=== PATIENT | female | born 1960 | race Caucasian/White ===

== ENCOUNTER 2017-10-07 15:08 | Day surgery (SDC) | payer BC, OTHER ==
[~2017-10-07 15:08] MED LIST: DIPRIVAN VIAL ONE; LTA KIT LIDOCAINE 4% ONE; NEO-SYNEPHRINE INJ ONE; NEOSTIGMINE INJ ONE; NORCURON INJ 10 MG VIAL ONE; QUELICIN (OR ANECTINE) ONE; ROBINUL ONE; SUPRANE IN ONE; VERSED ONE; XYLOCAINE 2 % (PLAIN) ONE; ZOFRAN INJ 4 MG VIAL ONE
[2017-10-07 15:14] VITALS: BMI 31.1
[2017-10-07] MEDS ORDERED: LR 1000 ML IV 1,000 ML IV ONE ×2 (16:13→18:25)
[2017-10-07] MEDS ORDERED: ANCEF 1 GM IV PREMIX* 1 GM/50 ML BAG IV ONE ×2 (16:13→16:30)
--- NOTE | 2017-10-07 16:22 | DR.GENAD ---
HPI - PCP Primary Care Physician: JARRED - Complaint/Symptoms Chief Complaint Doctors Comments: Patient states she has been having RUQ pain for the past three days and went to the emergency room in [place] and they did a CT of the abdomen and told her it was her gallbladder and they sent her to the emergency room here for Dr. Cobian. Patient states that her last meal was 12 noon but it all came back up. States she cannot keep anything down today. She denies chest pain or SOB. She denies fever or chills. She denies dysuria or hematuria. Chief Complaint:: "MY GALLBLADDER IS BAD." Self Treatment fo Chief Complaint: NONE - Nurses notes reviewed Nurses Notes Review: Yes - Source History Provided: Patient - Mode of Arrival Mode of Arrival: Ambulatory - Timing Onset of Chief Complaint: 10/05/17 Came on: Gradually - Duration Duration: Constant How lon Duration: Days - Location Location: RUQ pain - Severity Severity: Moderate - Modifying Factors Worsens:: nothing Improves:: nothing PMH - PMH Past Medical History: No Past Medical History: Diabetes, Hypertension Past Surgical History: Yes Surgical History: , Hysterectomy - Family History History of Family Medical Conditions: Yes Family Medical History: Heart Failure, Hypertension - Social History Does patient currently use any type of tobacco product: No Have you used tobacco products in the last 12 months: No Type of Tobacco Use: None Does any household member use tobacco: No Alcohol Use: None Do you use any recreational Drugs:: No Lives With: Family Lives Where: Home - infectious screening In the last 2 months have you had wt loss of >10#?: NO Have you had fever, night sweats or hemotysis?: No Have you traveled outside the country in the last 6 months?: No Isolation: Standard ROS - Review of Systems Constitutional: No Symptoms Reported, Loss of Appetite Eyes: No Symptoms Reported ENTM: No Symptoms Reported Respiratoy: No Symptoms Reported Cardiovascular: No Symptoms Reported Gastrointestinal/Abdominal: No Symptoms Reported, Abdominal Pain, Nausea, Vomiting Genitourinary: No Symptoms Reported. negative: See HPI, Discharge, Dysuria, Frequency, Hematuria, Pain, Bleeding, Other Neurological: No Symptoms Reported Musculoskeletal: No Symptoms Reported Integumentary: No Symptoms Reported Hematologic/Lymphatic: No Symptoms Reported Endocrine: No Symptoms Reported Psychiatric: No Symptoms Reported. negative: See HPI, Anxiety, Depression, Hallucinations, Excessive crying, Suicidal, Other PE - Vital Signs Vitals: Temperature 96.7 F Pulse Rate 100 Respiratory Rate 20 Blood Pressure [Right Arm] 126/60 Blood Pressure [Left Arm] 123/63 Blood Pressure 155/109 O2 Sat by Pulse Oximetry 99 - General Limitations: No Limitations General Appearance: Alert, In Distress (moderate) - Head Head Exam: Normal Inspection, Atraumatic, Normocephalic - Eyes Eye exam: Normal Appearance, PERRL, EOMI. negative: Scleral Icterus, Conjunctival Injection, Nystagmus, Miosis, Mydrasis, Periorbital Swelling, Periorbital Tenderness, Other - ENT ENT Exam: Normal Exam, Normal Oropharynx, Normal External Ear Exam, Mucous Membranes Moist, TM's Normal Bilaterally External Ear Exam: Normal External Inspection TM/Canal Exam: Bilateral Normal Nose Exam: Normal Nose Exam Mouth Exam: Normal Inspection Throat Exam: Normal Inspection. negative: Tonsillar Erythema, Tonsillomegaly, Tonsillar Exudate, R Peritonsillar Mass, L Peritonsillar Mass, Muffled Voice, Other - Neck Neck Exam: Normal Inspection, Full ROM, Trachea Midline. negative: Tenderness, Meningismus, Lymphadenopathy, Thyromegaly, Other - Chest Chest Inspection: Normal Inspection, Symmetric Chest Wall Rise - Respiratory Respiratory Exam: Normal Lung Sounds Bilat Respiratory Exam: Bilateral Clear to Auscultation - Cardiovascular Cardiovascular Exam: Regular Rate, Normal Rhythm, Normal Heart Sounds - Abdominal Exam Abdominal Exam: Normal Inspection, Normal Bowel Sounds, Soft, Tenderness (RUG tenderness with guarding), Guarding Abdominal Tenderness: RUQ, Moderate - Extremities Extremities Exam: Normal Inspection, Full ROM, Normal Capillary Refill. negative: Tenderness, Edema, Joint Swelling, Calf Tenderness, Other - Back Back Exam: Normal Inspection, Full ROM, (R) CVA Tenderness - Neurologic Neurological Exam: Alert, Oriented X3, CN II-XII Intact, Normal Gait, Reflexes Normal - Psychiatric Psychiatric Exam: Normal Affect, Normal Mood - Skin Skin Exam: Warm, Dry, Intact, Normal Color ROR - XRAY XRAY Interpreted by: Radiologist (CXR: No acute cardiopulmonary disease) - EKG Rate: 94 [place]: Normal Rhythm: NSR Block: None Hypertrophy: None ST: Nonsp - Diagnosis Discharge Problem: Abdominal pain, biliary disease, Diabetes mellitus, Essential hypertension - Discharge Plan Disposition: XFER OTHER Condition: Stable - Follow ups/Referrals - Instructions
[2017-10-07] MEDS: FENTANYL INJ 250 mcg ONE ×2 (16:33→17:21)
[2017-10-07] MEDS: DECADRON INJ ONE ×2 (16:34→17:21)
--- NOTE | 2017-10-07 16:44 | RAD ---
HISTORY: Preop. Study: Portable chest. Comparison: None. Findings: The trachea is midline. The cardiac silhouette is unremarkable. No obvious focal consolidation, ple ural effusion, or pneumothorax. The bony thorax is unremarkable. IMPRESSION: No acute cardiopulmonary disease. Reported By:
[2017-10-07] MEDS ORDERED: MARCAINE 0.25% INJ ONE (17:24)
[2017-10-07] MEDS ORDERED: XYLOCAINE 1% and EPINEPHRINE 1:100,000 ONE (17:24)
[2017-10-07] MEDS ORDERED: NS IRRIGATION 1000 ML 1,000 ML IR ONE ×4 (17:45→18:47)
[2017-10-07] MEDS ORDERED: FENTANYL INJ 100 mcg ONE (17:51)
[2017-10-07] MEDS ORDERED: PHENERGAN INJ 25 MG IVP PRN (19:31)
[2017-10-07] MEDS ORDERED: ZOFRAN INJ 4 MG VIAL IVP PRN (19:31)
[2017-10-07] MEDS ORDERED: BENADRYL INJ 50 MG VIAL IVP PRN (19:31)
[2017-10-07] MEDS ORDERED: REGLAN INJ 10 MG VIAL IVP PRN (19:31)
[2017-10-07] MEDS ORDERED: ULTRAM PO PRN (19:39)
--- NOTE | 2017-10-07 19:50 | OR.GENERIC ---
Post-Op Note Generic - Post-Op Note Operative Report: Operative Report Date of Operation: October 07, 2017 Pre-Operative Diagnosis: Acute cholecystitis. Post-Operative Diagnosis: 1. Acute cholecystitis. 2. Hepatosis. 3. Intra-abdominal adhesions. Procedures: 1. Laparoscopic cholecystectomy. 2. Laparoscopic lysis of adhesions. Surgeon: Charly Cobian MD. Excel Expert: Leandro Herman CRNA. Specimen: Gallbladder. Estimated blood loss: 100 mL. Complications: None. Summary: The patient is a 57 year old female who presented with acute cholecystitis. The patient was offered cholecystectomy. The risk and benefits of the procedure including difficulty with anesthesia, bleeding, infection, conversion to open procedure, bile leak, hernia formation, DVT, as well as PE were discussed with the patient. The patient understood these risks and requested the procedure. On October 07, 2017, the patient was brought to the operative theatre. A time out was performed verifying the patient and procedure. The patient received Ancef for pre-operative antibiosis. After satisfactory induction of general endotracheal anesthesia, the abdomen was prepped with Chloraprep and draped in the usual sterile fashion. The skin and subcutaneous tissue inferior to the umbilicus was anesthetized using local anesthetic. The skin was incised sharply. A 12 mm trocar was placed though the incision and into the peritoneal cavity using the Joana technique. Carbon dioxide was infiltrated through this trocar to obtain a pneumoperitoneum of 15 mm Hg. A camera was placed through this trocar and swept in all directions. No injury was seen from entering the peritoneal cavity. However, omental adhesions were noted in the right and middle aspects of the abdomen. The camera was navigated to the left and superiorly to allow visualization of the right upper quadrant. A site was selected to the right of the subxiphoid location for our 2nd trocar. The skin and fascia was anesthetized using local anesthetic. The skin was incised sharply. A 5 mm trocar was placed into the peritoneal cavity under direct visualization. In a similar manner, two additional 5 mm trocars were placed. The first was placed in the mid-clavicular line approximately 2 fingerbreadths inferior to the left costal margin and a second in the anterior axillary line approximately 2 fingerbreadths inferior to the left costal margin. At this point, the camera was changed to a 5 mm and placed in a right upper quadrant trocar. Blunt dissection was used to free the omental adhesions in the periumbilical and right lower quadrant regions. The 10 mm camera was again used. The patient was placed in reverse Trendelenburg and rotated to the patients left. The liver was noted to be nodular. The gallbladder was grasped at the fundus and elevated cephalad and slightly lateral. Omental attachments were taken down using blunt dissection and electrocautery. The peritoneum on the medial and lateral aspects of the infundibulum of the gallbladder was scored using hook electrocautery. Edema fluid was noted. Bleeding of the gallbladder fossa on the lateral aspect of the gallbladder was controlled using hook electrocautery. Using blunt dissection, the cystic artery and duct were isolated. The critical view of safety was obtained. Both of these structures were divided between endoclips. The gallbladder was dissected free using hook electrocautery. The gallbladder was placed in an endobag and removed through the umbilical trocar site without difficulty. The trocar and camera were placed back inside the abdomen. Our clips were noted in good position. Bleeding of the gallbladder fossa was controlled using electrocautery. At this point, the 5 mm trocars were removed under direct visualization. No bleeding was seen. The umbilical trocar was then removed and pneumoperitoneum released. The fascia at the umbilicus was closed using a 0 -Vicryl placed in a [id number] configuration x 2. The skin edges at all incisions were re-approximated using inverted, interrupted 4-0 Monocryl sutures. Mastisol and Steri-strips were placed. Sterile dressings were placed. The patient was awakened and taken to the recovery room in stable condition. There were no complications. All counts were correct.
[2017-10-07] MEDS: DILAUDID INJ IVP PRN ×3 (19:51→20:20)
[2017-10-07] MEDS ORDERED: DILAUDID INJ ONE (19:53)
[2017-10-07] MEDS ORDERED: PHENERGAN INJ 25 MG ONE (20:05)
[2017-10-08 05:53] VITALS: BP 112/69
== END 2017-10-08 10:30 | disposition home or self-care (01) ==
LOC: ER 15:17 → SURG1 17:11
PROVIDERS: ATTEND Student in an Organized Health Care Education/Training Program
PROC: 0FT44ZZ Resection of Gallbladder, Percutaneous Endoscopic Approach (ICD-10-PCS; principal; 2017-10-07 16:30)
DX: K66.0 Peritoneal adhesions (postprocedural) (postinfection) (principal); Z01.810 Encounter for preprocedural cardiovascular examination; K81.2 Acute cholecystitis with chronic cholecystitis
CPT/HCPCS: 71045; 93005; 93010; 96365; 99284; A4216; A4222; S0020; J0330; J0690; J1100; J1170; J2001; J2250; J2370; J2405; J2550; J2710; J3010; J3490; J7120

== ENCOUNTER → 2017-10-26 | Outpatient (CLI) | payer BC ==
[2017-10-08 05:53] VITALS: BP 112/69
[2017-10-26 16:26] LABS: BASOPHILS # (AUTO) 0.1 X10^3/uL (0.0-0.1); BASOPHILS % (AUTO) 0.9 % (0.2-1.0); EOSINOPHILS # (AUTO) 0.3 x10^3/uL (0.0-0.2); EOSINOPHILS % (AUTO) 3.8 % (0.9-2.9); HEMATOCRIT 35.2 % (36.0-47.0); HEMOGLOBIN 12.4 g/dL (12.0-16.0); LYMPHOCYTES # (AUTO) 2.6 X10^3/uL (1.3-2.9); LYMPHOCYTES % (AUTO) 36.6 % (21.0-51.0); MEAN CORPUSCULAR HEMOGLOBIN 26.8 pg (27.0-34.0); MEAN CORPUSCULAR HGB CONC 35.1 g/dL (33.0-35.0); MEAN CORPUSCULAR VOLUME 76.2 fL (80.0-100.0); MEAN PLATELET VOLUME 8.6 fL (7.4-11.0); MONOCYTES # (AUTO) 0.6 x10^3/uL (0.3-0.8); MONOCYTES % (AUTO) 8.1 % (0.0-13.0); NEUTROPHILS # (AUTO) 3.7 x10^3/uL (2.2-4.8); NEUTROPHILS % (AUTO) 50.6 % (42.0-75.0); PLATELET COUNT 232 X10^3/uL (150.0-450.0); RED BLOOD COUNT 4.62 X10^6/uL (3.5-5.4); RED CELL DISTRIBUTION WIDTH 13.1 % (11.6-16.5); WHITE BLOOD COUNT 7.2 X10^3/uL (3.6-10.0)
[2017-10-26 16:31] LABS: BILIRUBIN,DIRECT 0.2 mg/dL (0-0.2)
[2017-10-31 21:22] LABS: HEPATITIS A ANTIBODY IGM Negative (Negative)
[2017-11-01 06:35] LABS: HEPATITIS B CORE IGM Negative (Negative); HEPATITIS B SURFACE ANTIGEN Negative (Negative)
[2017-11-01 06:36] LABS: ANTI-NUCLEAR ANTIBODY TEST None Detected (None Detected)
== END ==
LOC: LAB 15:20
PROVIDERS: ATTEND Internal Medicine Gastroenterology
DX: K76.89 Other specified diseases of liver (principal)
CPT/HCPCS: 36415; 80074; 80076; 82103; 82390; 82525; 82728; 83550; 85025; 85610; 86256; 86308

== ENCOUNTER 2020-06-08 21:12 | Inpatient (IN) ==
--- NOTE | 2020-06-08 21:27 | DR.SOBA ---
HPI Time Seen Time Seen by Provider: 06/08/20 21:22 Complaints Chief Complaint Doctors Comments: DYspnea onset 3 days ago. Positive covid 19. Oxygen sats 70% at home. Here 89% 4L NC COVID-19 Coronavirus risk:travel/contact w/high risk person: Yes Has patient experienced Coronavirus symptoms: Yes Coronavirus symptoms experienced: Coughing and Shortness of Breath PMH PMH Past Medical History: Diabetes and Hypertension Past Surgical History: Yes Surgical History: and Hysterectomy Family History Family Medical History: Heart Failure and Hypertension Social History Do you use any recreational Drugs:: No Travel Risk Coronavirus risk:travel/contact w/high risk person: Yes Has patient experienced Coronavirus symptoms: Yes Coronavirus symptoms experienced: Coughing and Shortness of Breath ROS Review of Systems Constitutional: Fever and Weakness Eyes: No Symptoms Reported ENTM: No Symptoms Reported Respiratoy: Non-Productive Cough and Short of Breath Cardiovascular: Chest Pain Gastrointestinal/Abdominal: No Symptoms Reported Genitourinary: No Symptoms Reported Neurological: No Symptoms Reported Musculoskeletal: No Symptoms Reported Integumentary: No Symptoms Reported Hematologic/Lymphatic: No Symptoms Reported Endocrine: No Symptoms Reported Psychiatric: No Symptoms Reported All Other Systems: Reviewed and Negative PE Vital Signs Vitals: Temperature 99.9 F Pulse Rate 85 Respiratory Rate 39 Blood Pressure [Right Arm] 112/69 Blood Pressure [Left Arm] 123/63 Blood Pressure 154/68 O2 Sat by Pulse Oximetry 90 COURSE Consultation Called: 22:49 Call Returned: 22:49 Consultation Comments: 2250: case discussed with Dr. Willy bianchi and start Covid 19 protocol ROR Labs Reviewed Result Diagrams: 06/08/20 21:26 06/08/20 21:26 Laboratory: WBC 2.8 X10^3/uL (3.6-10.0) L 06/08/20 21:26 RBC 4.95 X10^6/uL (3.5-5.4) 06/08/20 21:26 Hgb 13.8 g/dL (12.0-16.0) 06/08/20 21:26 Hct 40.1 % (36.0-47.0) 06/08/20 21:26 MCV 81.1 fL (80.0-100.0) 06/08/20 21:26 MCH 27.9 pg (27.0-34.0) 06/08/20 21:26 MCHC 34.4 g/dL (33.0-35.0) 06/08/20 21: RDW 14.6 % (11.6-16.5) 06/08/20 21: Plt Count 72 X10^3/uL (150.0-450.0) L 06/08/20 21: MPV 9.0 fL (7.4-11.0) 06/08/20 21: Neut % (Auto) 75.3 % (42.0-75.0) H 06/08/20 21: Lymph % (Auto) 14.9 % (21.0-51.0) L 06/08/20 21: [place] % (Auto) 9.1 % (0.0-13.0) 06/08/20 21: Eos % (Auto) 0.1 % (0.9-2.9) L 06/08/20 21: Baso % (Auto) 0.6 % (0.2-1.0) 06/08/20 21: Neut # (Auto) 2.1 x10^3/uL (2.2-4.8) L 06/08/20 21: Lymph # (Auto) 0.4 X10^3/uL (1.3-2.9) L 06/08/20 21: [place] # (Auto) 0.2 x10^3/uL (0.3-0.8) L 06/08/20 21: Eos # (Auto) 0.0 x10^3/uL (0.0-0.2) 06/08/20 21: Baso # (Auto) 0.0 X10^3/uL (0.0-0.1) 06/08/20 21: Absolute Nucleated RBC 0.0 /100WBC 06/08/20 21: D-Dimer 0.64 ug/ml (0.0-0.57) H* 06/08/20 21:26 Sample Site left radial 06/08/20 21:35 ABG pH 7.490 (7.35-7.45) H 06/08/20 21:35 ABG pCO2 24.0 mmHg (35.0-45.0) L 06/08/20 21:35 ABG pO2 51.0 mmHg (80.0-100.0) L 06/08/20 21:35 ABG HCO3 18.3 mmol/L (22-26) L 06/08/20 21:35 ABG O2 Saturation 89.0 % (90-100) L 06/08/20 21:35 ABG Base Excess -3.5 mmol/L (-2.0-2.0) L 06/08/20 21:35 Tashi Test pos 06/08/20 21:35 A-a Gradient 119.0 mmHg 06/08/20 21:35 FiO2 28.0 06/08/20 21:35 Blood Gas Comments Esteban well 06/08/20 21:35 Sodium 130 mmol/L (136-145) L 06/08/20 21:26 Corrected Sodium 132 mmol/L (136-145) L 06/08/20 21:26 Potassium 3.5 mmol/L (3.5-5.1) 06/08/20 21:26 Chloride 94 mmol/L (98-107) L 06/08/20 21:26 Carbon Dioxide 23.0 mmol/L (21-32) 06/08/20 21:26 BUN 17 mg/dL (7-18) 06/08/20 21:26 Creatinine 1.20 mg/dL (0.55-1.02) H 06/08/20 21:26 Est GFR (MDRD) Af Amer 59 (>60) 06/08/20 21:26 Est GFR (MDRD) Non-Af 48 (>60) L 06/08/20 21:26 Glucose 200 mg/dL (65-99) H 06/08/20 21:26 Calcium 9.0 mg/dL (8.5-10.1) 06/08/20 21:26 Corrected Calcium 9.7 mg/dL (8.5-10.1) 06/08/20 21:26 Ferritin 3237 ng/mL (8-252) H 06/08/20 21:26 Total Bilirubin 1.20 mg/dL (0.2-1.0) H 06/08/20 21:26 AST 254 Units/L (15-37) H 06/08/20 21:26 ALT 139 Units/L (12-78) H 06/08/20 21:26 Alkaline Phosphatase 105 Units/L (46-116) 06/08/20 21:26 Creatine Kinase 123 Units/L (26-192) 06/08/20 21:26 CK-MB (CK-2) < 1.0 ng/mL (0-4.0) 06/08/20 21:26 CK/CKMB % Calc 0.8 % (<4) 06/08/20 21:26 Troponin I < 0.02 ng/mL (0-1.5) 06/08/20 21:26 C-Reactive Protein 127.10 mg/L (0-3.0) H 06/08/20 21:26 B-Natriuretic Peptide < 5.0 pg/mL (0-79) 06/08/20 21: Total Protein 7.6 g/dL (6.4-8.2) 06/08/20 21: Albumin 3.1 g/dL (3.4-5.0) L 06/08/20 21: Globulin 4.5 g/dL (2.5-4.5) 06/08/20 21: Albumin/Globulin Ratio 0.7 Ratio (1.1-2.1) L 06/08/20 21:26 XRAY XRAY Interpreted by: Radiologist X-ray Results: chest: Name: UVALDO WHITTEN [facility]#: [id number] : 1960 Sex: F Location: Order Number(s): [id number] Procedure(s):CHEST, 1 VIEW Ordering Physician: CAMILA LEVY Primary Care: Jay Perez Service Date: 06/08/20 Service Time: 2126 EXAM: CHEST X-RAY HISTORY: Shortness of breath. TECHNIQUE: AP chest x-ray dated 06/08/2020 at 9:30 PM. COMPARISON: None available. FINDINGS: There is prominence of the bronchopulmonary markings, especially in the middle and lower lung [place], in keeping with bronchitis and interstitial pneumonia (e.g. Covid pneumonia) in the appropriate clinical setting; DDX includes mild to moderate noncardiogenic pulmonary congestion in the appropriate clinical setting. Clinical correlation is advised. There is aortic atherosclerosis. No focal lung consolidation/mass, pleural effusion, or pneumothorax is seen. The heart size and mediastinum are within normal limits. The visualized bony structures are within normal limits. IMPRESSION: 1. Prominence of the bronchopulmonary markings, especially in the middle and lower lung [place], in keeping with bronchitis and interstitial pneumonia (e.g. Covid pneumonia) in the appropriate clinical setting; DDX includes mild to moderate noncardiogenic pulmonary congestion in the appropriate clinical setting. 2. Recommend clinical correlation and appropriate follow-up evaluation (consider noncontrast chest CT) for confirmation and further characterization as clinically warranted. Opioid Opioid Risk Tool Age (Camila box if 16-45): No History of Preadolescent Sexual Abuse: No Total: 0 Total Score Risk Category: Low Risk Copyright: Miles AQUINO predicting aberrant behaviors Diagnosis Discharge Problem: Pneumonia due to 2019 novel coronavirus
[2020-06-08] MEDS ORDERED: XOPENEX 1.25 MG/3 ML NEBULE NEB ONE (21:28)
[2020-06-08] MEDS ORDERED: SOLU-Medrol 125 MG VIAL IVP ONE (21:29)
[2020-06-08] MEDS ORDERED: MOTRIN TAB 800 MG PO STA (21:29)
[2020-06-08 21:41] LABS: BASOPHILS % (AUTO) 0.6 % (0.2-1.0); EOSINOPHILS % (AUTO) 0.1 % (0.9-2.9); HEMATOCRIT 40.1 % (36.0-47.0); HEMOGLOBIN 13.8 g/dL (12.0-16.0); LYMPHOCYTES # (AUTO) 0.4 X10^3/uL (1.3-2.9); LYMPHOCYTES % (AUTO) 14.9 % (21.0-51.0); MEAN CORPUSCULAR HEMOGLOBIN 27.9 pg (27.0-34.0); MEAN CORPUSCULAR HGB CONC 34.4 g/dL (33.0-35.0); MEAN CORPUSCULAR VOLUME 81.1 fL (80.0-100.0); MONOCYTES # (AUTO) 0.2 x10^3/uL (0.3-0.8); MONOCYTES % (AUTO) 9.1 % (0.0-13.0); NEUTROPHILS # (AUTO) 2.1 x10^3/uL (2.2-4.8); NEUTROPHILS % (AUTO) 75.3 % (42.0-75.0); PLATELET COUNT 72 X10^3/uL (150.0-450.0); RED BLOOD COUNT 4.95 X10^6/uL (3.5-5.4); RED CELL DISTRIBUTION WIDTH 14.6 % (11.6-16.5); WHITE BLOOD COUNT 2.8 X10^3/uL (3.6-10.0)
[2020-06-08] MEDS ORDERED: SOLU-Medrol 125 MG VIAL ONE (21:43)
[2020-06-08] MEDS ORDERED: MOTRIN TAB 800 MG PO ONE (21:44)
[2020-06-08 21:48] LABS: ABG BASE EXCESS -3.5 mmol/L (-2.0-2.0); ABG HCO3 18.3 mmol/L (22-26)
[2020-06-08 21:49] LABS: ABG ALLEN TEST pos
--- NOTE | 2020-06-08 21:52 | RAD ---
EXAM: CHEST X-RAYHISTORY: Shortness of breath.TECHNIQUE: AP chest x-ray dated 06/08/2020 at 9:30 PM.COMPARISON: None available.FINDINGS:There is prominence of the bronchopulmonary markings, especially in the middle and lower lung [place], in keeping with bronchitis and interstitial pneumonia (e.g. Covid pneumonia) in the appropriate clinical setting; DDX includes mild to moderate noncardiogenic pulmonary congestion in the appropriate clinical setting. Clinical correlation is advised.There is aortic atherosclerosis. No focal lung consolidation/mass, pleural effusion, or pneumothorax is seen.The heart size and mediastinum are within normal limits. The visualized bony structures are within normal limits.IMPRESSION:1. Prominence of the bronchopulmonary markings, especially in the middle and lower lung [place], in keeping with bronchitis and interstitial pneumonia (e.g. Covid pneumonia) in the appropriate clinical setting; DDX includes mild to moderate noncardiogenic pulmonary congestion in the appropriate clinical setting.2. Recommend clinical correlation and appropriate follow-up evaluation (consider noncontrast chest CT) for confirmation and further characterization as clinically warranted.Electronically signed by: Arslan Smallwood (Jun 08, 2020 21:50:35)
[2020-06-08 22:03] LABS: ALANINE AMINOTRANSFERASE 139 Units/L (12-78); ALBUMIN 3.1 g/dL (3.4-5.0); ALKALINE PHOSPHATASE 105 Units/L (46-116); ASPARTATE AMINO TRANSFERASE 254 Units/L (15-37); BLOOD UREA NITROGEN 17 mg/dL (7-18); CHLORIDE 94 mmol/L (98-107); CKMB % 0.8 % (<4); COR CA(FOR HYPOALB) 9.7 mg/dL (8.5-10.1); COR NA(FOR HYPERGLY) 132 mmol/L (136-145); CREATINE KINASE 123 Units/L (26-192); CREATINE KINASE MB < 1.0 ng/mL (0-4.0); SODIUM 130 mmol/L (136-145); TOTAL PROTEIN 7.6 g/dL (6.4-8.2); TROPONIN I < 0.02 ng/mL (0-1.5); eGFR NON BLACK RACES 48 (>60)
--- NOTE | 2020-06-08 22:46 | CT ---
STUDY: CTA CHEST WITH IV CONTRASTCOMPARISON: NoneTECHNIQUE: axial images were acquired of the chest with IV contrast for a CT angiogram. Coronal and sagittal images were provided. All images were reviewed in a variety of windows and levels. 3D 8 mm thick MIPS images were provided.RADIATION REDUCTION TECHNIQUE: Automated exposure control, Adjustment of the mA and/or kV according to patient size, or iterative reconstruction techniques were used. 8 mm thick axial MIPS images were provided.HISTORY: PT IN ED VIA WHEELCHAIR WITH C/O SOB AND LOW O2 SAT. PT TESTED COVID POSITIVE TODAY AND SATS RUNNING IN THE 'S.FINDINGS:CHEST:THYROID GLANDS: The thyroid gland is unremarkable.HEART AND VESSELS: The heart size is within normal limits.There is no evidence of pericardial effusion. Thoracic aorta is normal size without evidence of an aneurysm or dissection.Main pulmonary artery size is within normal limits. There are no filling defect seen within the visualized pulmonary arteries to suggest a pulmonary embolism.LYMPH NODES: There is no evidence of axillary or mediastinal lymphadenopathy. No evidence of left hilar lymphadenopathy. There is right hilar lymphadenopathy seen measuring 16 mm in short axis which may be reactive in etiology.AIRWAY: The trachea and mainstem bronchi are patent.No intraluminal lesions are seen.LUNGS: Extensive diffuse ground-glass opacities are seen throughout the right left lung involving the subpleural surface and major fissures. Some of these areas demonstrate interlobular septal thickening compatible with crazy paving. No pleural effusion or pneumothorax is seen.ESOPHAGUS: The esophagus is grossly unremarkable.BONES: The visualized bones demonstrate degenerative changes. There are no concerning lytic or blastic lesions identified.UPPER ABDOMINAL STRUCTURES: The visualized upper abdominal structures demonstrates findings suggesting hepatic cirrhosis. Status post cholecystectomy.IMPRESSSION:1. The lung imaging features are in correlation with the patient's history of being positive for COVID-19. Based on the extent of lung disease, imaging features are worrisome for ARDS.2. No evidence of pulmonary embolism3. Findings suggest hepatic cirrhosis with postoperative changes from cholecystectomy.Electronically signed by: Edmund Amor (Jun 08, 2020 22:44:14)
[2020-06-08] MEDS ORDERED: REMDESIVIR 200 MG in NS 250 ML IV 250 ML IV SCH (23:00)
[2020-06-08] MEDS ORDERED: DECADRON TAB PO SCH (23:00)
[2020-06-09] MEDS: ASCORBIC ACID INJ MULTI-DOSE VIAL 1,500 MG in NS 100 ML IV 100 ML IV SCH ×3 (00:30→09:05)
[2020-06-09] MEDS: VITAMIN A PO SCH ×2 (00:36→09:12)
[2020-06-09] MEDS: VITAMIN D (1.25MG) PO SCH ×2 (00:36→12:03)
[2020-06-09] MEDS: ZINC SULFATE PO SCH ×3 (00:36→21:01)
[2020-06-09] MEDS: TRICOR TAB 160 MG PO SCH ×2 (00:36→09:12)
[2020-06-09 07:50] LABS: MONOCYTES # (AUTO) 0.1 x10^3/uL (0.3-0.8); NEUTROPHILS # (AUTO) 1.5 x10^3/uL (2.2-4.8); NEUTROPHILS % (AUTO) 72.9 % (42.0-75.0); PLATELET COUNT 67 X10^3/uL (150.0-450.0); RED CELL DISTRIBUTION WIDTH 14.7 % (11.6-16.5)
[2020-06-09 08:02] LABS: BASOPHILS % (AUTO) 0.1 % (0.2-1.0); EOSINOPHILS % (AUTO) 0.1 % (0.9-2.9); HEMATOCRIT 39.1 % (36.0-47.0); HEMOGLOBIN 13.2 g/dL (12.0-16.0); LYMPHOCYTES # (AUTO) 0.5 X10^3/uL (1.3-2.9); LYMPHOCYTES % (AUTO) 22.7 % (21.0-51.0); MEAN CORPUSCULAR HEMOGLOBIN 27.8 pg (27.0-34.0); MEAN CORPUSCULAR HGB CONC 33.7 g/dL (33.0-35.0); MEAN CORPUSCULAR VOLUME 82.5 fL (80.0-100.0); MEAN PLATELET VOLUME 9.7 fL (7.4-11.0); MONOCYTES % (AUTO) 4.2 % (0.0-13.0); RED BLOOD COUNT 4.74 X10^6/uL (3.5-5.4); WHITE BLOOD COUNT 2.1 X10^3/uL (3.6-10.0)
[2020-06-09 08:10] LABS: ALANINE AMINOTRANSFERASE 125 Units/L (12-78); ALBUMIN 2.6 g/dL (3.4-5.0); ALKALINE PHOSPHATASE 90 Units/L (46-116); ASPARTATE AMINO TRANSFERASE 212 Units/L (15-37); BLOOD UREA NITROGEN 28 mg/dL (7-18); CALCIUM 8.1 mg/dL (8.5-10.1); CHLORIDE 98 mmol/L (98-107); CKMB % 0.8 % (<4); COR CA(FOR HYPOALB) 9.2 mg/dL (8.5-10.1); COR NA(FOR HYPERGLY) 140 mmol/L (136-145); CREATINE KINASE 126 Units/L (26-192); CREATINE KINASE MB < 1.0 ng/mL (0-4.0); CREATININE 1.39 mg/dL (0.55-1.02); SODIUM 133 mmol/L (136-145); TOTAL PROTEIN 6.9 g/dL (6.4-8.2); TROPONIN I < 0.02 ng/mL (0-1.5); eGFR NON BLACK RACES 41 (>60)
[2020-06-09 08:12] LABS: BAND NEUTROPHILS % 10 % (0-10); PLATELET MORPHOLOGY COMMENT NORMAL (NORMAL)
[2020-06-09] MEDS ORDERED: XANAX PO PRN (08:26)
[2020-06-09] MEDS ORDERED: VITAMIN D (1.25MG) PO SCH (08:30)
[2020-06-09 08:56] LABS: BILIRUBIN,URINE NEGATIVE (NEGATIVE); BLOOD/HEMOGLOBIN,URINE 5+ (NEGATIVE); GLUCOSE, URINE 1+ (NEGATIVE); KETONES,URINE 1+ (NEGATIVE); LEUKOCYTE ESTERASE ,URINE NEGATIVE (NEGATIVE); NITRITES,URINE NEGATIVE (NEGATIVE); PROTEIN,URINE 2+ (NEGATIVE); UROBILINOGEN,URINE 1+ (NORMAL)
[2020-06-09] MEDS ORDERED: PROTONIX INJ 40 MG VIAL IVP SCH (09:00)
[2020-06-09] MEDS ORDERED: PLAQUENIL PO SCH (09:00)
[2020-06-09] MEDS ORDERED: LOVENOX INJ 30 MG SYR SC SCH (09:00)
[2020-06-09] MEDS ORDERED: PEPCID 20 MG IV PREMIX* 20 MG/50 ML BAG IV SCH ×2 (09:00→12:00)
[2020-06-09 09:04] LABS: AMORPHOUS SEDIMENT,UR TRACE /HPF (NEGATIVE); APPEARANCE,URINE CLEAR (CLEAR); BACTERIA,URINE TRACE /HPF (NEGATIVE); COLOR,URINE DARK YELLOW (YELLOW); RBC,URINE 20-30 /HPF (0-3); SQUAMOUS EPITHELIAL CELL,UR FEW /HPF (NEGATIVE)
[2020-06-09] MEDS: SOLU-Medrol 40 MG VIAL IVP SCH ×3 (09:07→21:00)
[2020-06-09] MEDS: PROTONIX INJ 40 MG VIAL IVP SCH ×2 (09:11→21:01)
[2020-06-09] MEDS: REMDESIVIR 100 MG in NS 250 ML IV 250 ML IV SCH (09:12)
[2020-06-09] MEDS: DUONEB 0.5 MG/3 MG (3 mL) NEB SCH ×4 (09:30→20:40)
[2020-06-09] MEDS: PULMICORT NEB TX 0.5 MG NEB SCH ×2 (09:30→20:40)
[2020-06-09] MEDS ORDERED: GLUCOPHAGE ONE ×2 (09:47→19:49)
[2020-06-09] MEDS: CYMBALTA PO SCH (10:35)
[2020-06-09] MEDS: JANUVIA PO SCH (10:35)
[2020-06-09] MEDS: NEURONTIN CAP 400 MG PO SCH ×2 (10:36→21:00)
[2020-06-09] MEDS: GLUCOPHAGE PO SCH ×2 (10:36→21:00)
[2020-06-09] MEDS: AMARYL TAB 4 MG PO SCH (10:38)
--- NOTE | 2020-06-09 10:45 | RAD ---
HISTORYSOB, COVIDSTUDYCHEST, 1 [id number] is midline normal heart size. There is again seen patchy alveolar and ground-glass radiopacities, since prior study the radiopacities in the left lower lobe appears less denser, with better visualization of the heart border. There are still few ground-glass radiopacities in the right upper lobe. No pneumothorax or pleural effusions.IMPRESSIONMild improvement of alveolar radiopacities in the left lower lobe. Unchanged ground-glass radiopacities in the right upper lobeElectronically signed by: Cristal Dao (Jun 09, 2020 10:43:46)
[2020-06-09 11:02] LABS: ABG BASE EXCESS -7.8 mmol/L (-2.0-2.0)
[2020-06-09 11:04] LABS: ABG HCO3 14.3 mmol/L (22-26)
--- NOTE | 2020-06-09 11:43 | DR.H&P ---
H&P - History & Physical for Day of: H&P Date: 06/09/20 - Chief Complaint Chief Complaint: FEVER, COUGH, SOB, DIARRHEA, WEAKNESS - History of Present Illness History of Present Illness: IS A 60 YEAR OLD PATIENT OF OURS WHO PRESENTED TO THE ER WITH COMPLAINTS OF FEVER, SHORTNESS OF BREATH, COUGH, DIARRHEA, GENERALIZED WEAKNESS, AND LOW OXYGEN SATURATIONS. SHE TESTED POSITIVE FOR COVID-19 ON 06/08/20. SHE WAS GIVEN PRESCRIPTIONS FOR A MEDROL DOSEPACK, A Z-PACK, AND PLAQUENIL 200MG PO BID. SHE HAD ONLY HAD ONE DOSE OF THE MEDICATIONS PRIOR TO ARRIVING AT THE ER. SHE REPORTS THAT AT HOME, HER OXYGEN SATURATIONS WERE 63% ON ROOM AIR. HER PMH INCLUDES DIABETES, HTN, A CIRRHOTIC LIVER, C- SECTION, AND HYSTERECTOMY. ON ARRIVAL TO THE ER, VITALS WERE 99.9-106-24-66%RA-154/68. SHE WAS PLACED ON NASAL CANNULA AT 6L/MIN. SATURATIONS INCREASED TO 89%. LABS WERE OBTAINED. ABNORMAL LAB VALUES INCLUDE THE FOLLOWING: WBC 2.8, PLT COUNT 72, D-DIMER 0.64, SODIUM 130, CHLORIDE 94, CREATININE 1.20, GLUCOSE 200, FERRITIN 3237, TOTAL BILI 1.20, AST 254, ALT 139, CRP 127.10, ALBUMIN 3.1. CARDIAC ENZYMES WERE WITHIN NORMAL LIMITS. A CHEST XRAY WAS OBTAINED AND REVEALED: Prominence of the bronchopulmonary markings, especially in the middle and lower lung [place], in keeping with bronchitis and interstitial pneumonia (e.g. Covid pneumonia) in the appropriate clinical setting; DDX includes mild to moderate noncardiogenic pulmonary congestion in the appropriate clinical setting. A CHEST CTA WAS ALSO OBTAINED TO RULE OUT A PE. IT REVEALED: 1. The lung imaging features are in correlation with the patient's history of being positive for COVID-19. Based on the extent of lung disease, imaging features are worrisome for ARDS. 2. No evidence of pulmonary embolism. 3. Findings suggest hepatic cirrhosis with postoperative changes from cholec ystectomy. SHE WAS GIVEN A XOPENEX NEB [place], MOTRIN 800MG PO X 1, SOLU-MEDROL 125MG IV X 1. SHE WAS ALSO GIVEN REMDESIVIR 200MG IV X 1. SHE WAS ADMITTED TO THE HOSPITAL FOR FURTHER EVALUATION AND TREATMENT OF PNEUMONIA DUE TO COVID-19, HYPOXIA, RESPIRATORY DISTRESS, AND CIRRHOSIS. SHE WAS STARTED ON REMDESIVIR 100MG IV DAILY, LEVAQUIN 500MG IV DAILY, SOLU-MEDROL 40MG IV Q8H, DUONEBS QID, PULMICORT NEBS BID, LOVENOX 30MG SC DAILY, PEPCID 20MG IV Q12H, PROTONIX 40MG IV BID, HUMULIN R SLIDING SCALE, AND HER HOME MEDICATIONS WERE RESUMED. WE WILL ORDER ONE UNIT OF CONVALESCENT PLASMA, TO BE TRANSFUSED WHEN IT ITS AVAILABLE. OTHERWISE, WE PLAN TO FOLLOW UP WITH AM LABS AND CONTINUE TO MONITOR. - Past Medical History Past Medical History: Hypertension, Diabetes - Past Surgical History Surgical History: Cholecystectomy, Hysterectomy - Family History Family Medical History: Diabetes Mellitus - Social History Does patient currently use any type of tobacco product: No Have you used tobacco products in the last 12 months: No Type of Tobacco Use: None Does any household member use tobacco: No Alcohol Use: None Drug Use: None - Medications Home Medications: ondansetron [From Zofran] Allergy (Verified 06/08/20 21:27) codeine Adverse Reaction (Verified 10/07/17 15:10) Sulfa (Sulfonamide Antibiotics) Adverse Reaction (Verified 10/07/17 15:10) CONTINUE taking the following medications alprazolam 0.5 mg PO HS PRN 06/08/20 [History] duloxetine 30 mg PO DAILY 06/08/20 [History] ergocalciferol (vitamin D2) 1,250 mcg PO QWEEK 06/08/20 [History] fremanezumab-vfrm [Ajovy Syringe] 225 mg SUBCUT MONTHLY 06/08/20 [History] gabapentin 400 mg PO TID 06/08/20 [History] glimepiride 2 mg PO DAILY 06/08/20 [History] lisinopril 5 mg PO DAILY 06/08/20 [History] metformin 1,000 mg PO BID 06/08/20 [History] sitagliptin [Januvia] 100 mg PO DAILY 06/08/20 [History] - Review of Systems Constitutional: See HPI, Fever, Chills, Weakness Eyes: No Symptoms Reported ENT: No Symptoms Reported Respiratory: See HPI, Cough, Shortness of Breath, SOB with Excertion, Wheezing Cardiovascular: No Symptoms Reported Gastrointestinal: No Symptoms Reported Genitourinary: No Symptoms Reported Musculoskeletal: No Symptoms Reported Skin: No Symptoms Reported Neurological: Weakness - Physical Exam Vital Signs: Temperature 97.5 F Pulse Rate [Apical] 96 Pulse Rate 101 Respiratory Rate 36 Blood Pressure [Right Arm] 113/62 Blood Pressure [Left Arm] 94/76 Blood Pressure 120/60 O2 Sat by Pulse Oximetry 86 Oriented: Normal Eyes: Normal Ear: Normal Nose: Normal Throat: Normal Respiratory: Wheezes Throughout Cardiovascular: Normal : Normal Auscultation: Bowel Sounds: Normal Palpation: Normal Tenderness: Normal Skin: Normal Musculoskeletal: Normal Psychiatric: Normal Mood Description: Calm Affect: Normal Speech Pattern: Clear - Assessment/Plan (1) Pneumonia due to 2019 novel coronavirus Status: Acute Plan: REMDESIVIR 100MG IV DAILY, LEVAQUIN 500MG IV DAILY, SOLU-MEDROL 40MG IV Q8H, DUONEBS QID, PULMICORT NEBS BID, LOVENOX 30MG SC DAILY, PEPCID 20MG IV Q12H, PROTONIX 40MG IV BID, HUMULIN R SLIDING SCALE, AND HER HOME MEDICATIONS WERE RESUMED. WE WILL ORDER ONE UNIT OF CONVALESCENT PLASMA, TO BE TRANSFUSED WHEN IT ITS AVAILABLE (2) Respiratory distress Status: Acute (3) Hypoxia Status: Acute (4) Cirrhosis Qualifiers: Hepatic cirrhosis type: unspecified hepatic cirrhosis Ascites presence: without ascites Qualified Code(s): K74.60 - Unspecified cirrhosis of liver Status: Acute (5) Diabetes mellitus Qualifiers: Diabetes mellitus type: type 2 Diabetes mellitus assisted insulin use: with buttermilk drier operator use Diabetes mellitus complication status: with other specified complication Qualified Code(s): E11.69 - Type 2 diabetes mellitus with other specified complication; Z79.4 - exterminator (current) use of insulin Status: Chronic - Allergies Allergies/Adverse Reactions: Allergies Allergy/AdvReac Type Severity Reaction Status Date / Time ondansetron [From Zofran] Allergy Verified 06/08/20 21:27 codeine AdvReac Verified 10/07/17 15:10 Sulfa (Sulfonamide AdvReac Verified 10/07/17 15:10 Antibiotics)
[2020-06-09] MEDS ORDERED: LEVAQUIN PREMIX IV 500 MG 500 MG/100 ML BAG IV NR (12:00)
[2020-06-09] MEDS: HumuLIN R SUBCUT PRN ×3 (12:59→21:02)
[2020-06-09] MEDS ORDERED: FIORICET TAB PO PRN (13:53)
[2020-06-09] MEDS: TESSALON PERLES PO SCH ×2 (14:11→21:01)
[2020-06-09] MEDS: FIORICET TAB PO PRN (14:12)
[2020-06-09] MEDS: NS 1000 ML 1,000 ML IV SCH (15:37)
[2020-06-09] MEDS: PHENERGAN TAB 25 MG PO PRN (15:37)
[2020-06-09] MEDS: SNACK - Diabetic Appropriate PO SCH (21:01)
[2020-06-10 04:05] LABS: ABG BASE EXCESS -8.7 mmol/L (-2.0-2.0)
[2020-06-10 04:06] LABS: ABG ALLEN TEST POS; ABG HCO3 14.8 mmol/L (22-26)
[2020-06-10] MEDS: NS 1000 ML 1,000 ML IV SCH (05:44)
[2020-06-10] MEDS: TESSALON PERLES PO SCH ×3 (05:45→21:22)
[2020-06-10] MEDS: SOLU-Medrol 40 MG VIAL IVP SCH ×3 (05:45→21:22)
[2020-06-10] MEDS: HumuLIN R SUBCUT PRN ×2 (05:45→17:45)
[2020-06-10 06:13] LABS: BASOPHILS % (AUTO) 0.1 % (0.2-1.0); HEMATOCRIT 37.7 % (36.0-47.0); HEMOGLOBIN 13.1 g/dL (12.0-16.0); LYMPHOCYTES # (AUTO) 0.6 X10^3/uL (1.3-2.9); LYMPHOCYTES % (AUTO) 11.8 % (21.0-51.0); MEAN CORPUSCULAR HGB CONC 34.6 g/dL (33.0-35.0); MEAN CORPUSCULAR VOLUME 80.9 fL (80.0-100.0); MEAN PLATELET VOLUME 9.2 fL (7.4-11.0); MONOCYTES # (AUTO) 0.3 x10^3/uL (0.3-0.8); MONOCYTES % (AUTO) 5.4 % (0.0-13.0); NEUTROPHILS # (AUTO) 4.3 x10^3/uL (2.2-4.8); NEUTROPHILS % (AUTO) 82.7 % (42.0-75.0); PLATELET COUNT 80 X10^3/uL (150.0-450.0); RED BLOOD COUNT 4.66 X10^6/uL (3.5-5.4); RED CELL DISTRIBUTION WIDTH 14.9 % (11.6-16.5); WHITE BLOOD COUNT 5.2 X10^3/uL (3.6-10.0)
[2020-06-10 06:44] LABS: ALBUMIN 2.6 g/dL (3.4-5.0); CARBON DIOXIDE 16.7 mmol/L (21-32); COR CA(FOR HYPOALB) 9.1 mg/dL (8.5-10.1); CREATININE 1.81 mg/dL (0.55-1.02); TOTAL PROTEIN 6.8 g/dL (6.4-8.2)
--- NOTE | 2020-06-10 06:45 | RAD ---
HISTORYCOVID, SOBSTUDYCHEST, 1 [id number]/15/2020.TECHNIQUEAP view of the chestFINDINGSCardiac and mediastinal contours appear stable. No significant change in airspace and interstitial opacities, worse on the left. No pleural effusion or pneumothorax.IMPRESSIONNo significant change.Electronically signed by: Chan Tucker (Jun 10, 2020 06:44:16)
[2020-06-10] MEDS ORDERED: GLUCOPHAGE ONE ×2 (08:13→20:22)
[2020-06-10] MEDS ORDERED: VITAMIN A PO SCH (09:00)
[2020-06-10] MEDS: AMARYL TAB 4 MG PO SCH (09:03)
[2020-06-10] MEDS: ZINC SULFATE PO SCH ×2 (09:04→21:22)
[2020-06-10] MEDS: TRICOR TAB 160 MG PO SCH (09:05)
[2020-06-10] MEDS: PROTONIX INJ 40 MG VIAL IVP SCH ×2 (09:05→21:21)
[2020-06-10] MEDS: VITAMIN D3 125 mcg (5,000 UNITS) PO SCH (09:05)
[2020-06-10] MEDS: PEPCID 20 MG IV PREMIX* 20 MG/50 ML BAG IV SCH (09:06)
[2020-06-10] MEDS: NEURONTIN CAP 400 MG PO SCH ×2 (09:07→21:21)
[2020-06-10] MEDS: LOVENOX INJ 30 MG SYR SC SCH (09:07)
[2020-06-10] MEDS: JANUVIA PO SCH (09:08)
[2020-06-10] MEDS: LEVAQUIN PREMIX IV 250 MG 250 MG/50 ML BAG IV SCH (09:08)
[2020-06-10] MEDS: CYMBALTA PO SCH (09:09)
[2020-06-10] MEDS: GLUCOPHAGE PO SCH ×2 (09:09→21:21)
[2020-06-10] MEDS ORDERED: POTASSIUM CHL 40 MEQ/NS 0.45% 500 ML IV PRN (09:10)
[2020-06-10] MEDS ORDERED: POTASSIUM CHLORIDE LIQ 20 MEQ UDC PO PRN (09:10)
[2020-06-10] MEDS ORDERED: MICRO K EXTEN CAP 10 MEQ PO PRN (09:10)
[2020-06-10] MEDS: DUONEB 0.5 MG/3 MG (3 mL) NEB SCH ×4 (09:10→21:25)
[2020-06-10] MEDS ORDERED: K-RIDER 10 MEQ/NS 100 ML 10 MEQ/100 ML BAG IV PRN (09:10)
[2020-06-10] MEDS ORDERED: K-DUR TAB 20 MEQ PO PRN (09:10)
[2020-06-10] MEDS ORDERED: KLOR-CON PO PRN (09:10)
[2020-06-10] MEDS: PULMICORT NEB TX 0.5 MG NEB SCH ×2 (09:10→21:25)
[2020-06-10] MEDS ORDERED: POTASSIUM CHL 60 MEQ/NS 0.45% 500 ML IV PRN (09:10)
[2020-06-10] MEDS: PHENERGAN TAB 25 MG PO PRN (09:30)
[2020-06-10] MEDS ORDERED: MORPHINE SULFATE PCA 30 MG IVP PRN (09:55)
[2020-06-10] MEDS: MORPHINE SULFATE JET NEB NEB SCH ×5 (10:26→22:43)
[2020-06-10 11:17] LABS: ABG BASE EXCESS -8.9 mmol/L (-2.0-2.0)
[2020-06-10 11:18] LABS: ABG ALLEN TEST POS; ABG HCO3 15.8 mmol/L (22-26)
[2020-06-10] MEDS: REMDESIVIR 100 MG in NS 250 ML IV 250 ML IV SCH (11:35)
[2020-06-10] MEDS ORDERED: SODIUM BICARBONATE 8.4% INJ ADULT 100 ML in NS 1/2 1000 ML IV 1,000 ML IV SCH (13:44)
[2020-06-10] MEDS: XANAX PO SCH ×2 (14:03→21:22)
[2020-06-10] MEDS: NS IV SCH (14:03)
[2020-06-10] MEDS: SODIUM BICARBONATE 8.4% IV SCH (14:03)
[2020-06-10] MEDS: SNACK - Diabetic Appropriate PO SCH (21:20)
[2020-06-11 01:27] LABS: ABG BASE EXCESS -5.7 mmol/L (-2.0-2.0); ABG HCO3 20.7 mmol/L (22-26)
[2020-06-11 01:28] LABS: ABG ALLEN TEST POS
[2020-06-11] MEDS: SODIUM BICARBONATE 8.4% IV SCH (04:04)
[2020-06-11] MEDS: NS IV SCH (04:04)
[2020-06-11 04:39] LABS: ABG ALLEN TEST POS; ABG BASE EXCESS -3.7 mmol/L (-2.0-2.0); ABG HCO3 22.1 mmol/L (22-26); FRACTIONATED INSPIRED OXYGEN 100
[2020-06-11] MEDS: SOLU-Medrol 40 MG VIAL IVP SCH ×3 (05:26→21:26)
[2020-06-11] MEDS: TESSALON PERLES PO SCH ×4 (05:26→23:37)
[2020-06-11] MEDS: HumuLIN R SUBCUT PRN ×3 (05:27→17:17)
[2020-06-11 05:30] LABS: BASOPHILS % (AUTO) 0 % (0.2-1.0); HEMATOCRIT 37.7 % (36.0-47.0); HEMOGLOBIN 13.2 g/dL (12.0-16.0); LYMPHOCYTES # (AUTO) 0.7 X10^3/uL (1.3-2.9); LYMPHOCYTES % (AUTO) 10.9 % (21.0-51.0); MEAN CORPUSCULAR HGB CONC 34.9 g/dL (33.0-35.0); MEAN CORPUSCULAR VOLUME 80.2 fL (80.0-100.0); MEAN PLATELET VOLUME 8.3 fL (7.4-11.0); MONOCYTES # (AUTO) 0.5 x10^3/uL (0.3-0.8); MONOCYTES % (AUTO) 8.4 % (0.0-13.0); NEUTROPHILS % (AUTO) 80.7 % (42.0-75.0); PLATELET COUNT 92 X10^3/uL (150.0-450.0); WHITE BLOOD COUNT 6.2 X10^3/uL (3.6-10.0)
[2020-06-11 05:38] LABS: ALBUMIN 2.6 g/dL (3.4-5.0); CALCIUM 8.1 mg/dL (8.5-10.1); CARBON DIOXIDE 22.8 mmol/L (21-32); COR CA(FOR HYPOALB) 9.2 mg/dL (8.5-10.1); CREATININE 1.51 mg/dL (0.55-1.02); TOTAL PROTEIN 6.6 g/dL (6.4-8.2)
--- NOTE | 2020-06-11 08:05 | RAD ---
HISTORYCOVID, SOBSTUDYCHEST, 1 [id number]/16/2020FINDINGSTrachea is midline. Normal heart size. There is again seen patchy perihilar infiltrates. There is also ground-glass radiopacities in the bases and in the right upper lobe. Since prior study, there has not been significant change. No pleural effusions or pneumothorax.IMPRESSIONStable ground-glass and interstitial radiopacities involving the perihilar region and the lower lobes left more than right.Electronically signed by: Cristal Dao (Jun 11, 2020 08:03:49)
[2020-06-11] MEDS: LEVAQUIN PREMIX IV 250 MG 250 MG/50 ML BAG IV SCH (08:52)
[2020-06-11] MEDS: PROTONIX INJ 40 MG VIAL IVP SCH ×2 (08:53→20:10)
[2020-06-11] MEDS: LOVENOX INJ 30 MG SYR SC SCH ×2 (08:53→20:11)
[2020-06-11] MEDS: DUONEB 0.5 MG/3 MG (3 mL) NEB SCH ×4 (09:00→20:29)
[2020-06-11] MEDS: PULMICORT NEB TX 0.5 MG NEB SCH ×2 (09:00→20:29)
[2020-06-11] MEDS: MORPHINE SULFATE JET NEB NEB SCH ×5 (09:00→20:29)
[2020-06-11] MEDS ORDERED: NS 1000 ML 1,000 ML IV ONE (09:27)
[2020-06-11] MEDS ORDERED: GLUCOPHAGE ONE ×2 (09:34→19:29)
[2020-06-11] MEDS: PEPCID 20 MG IV PREMIX* 20 MG/50 ML BAG IV SCH (09:39)
[2020-06-11] MEDS: AMARYL TAB 4 MG PO SCH (09:40)
[2020-06-11] MEDS: ZINC SULFATE PO SCH ×3 (09:41→23:36)
[2020-06-11] MEDS: JANUVIA PO SCH (09:42)
[2020-06-11] MEDS: GLUCOPHAGE PO SCH ×2 (09:42→20:10)
[2020-06-11] MEDS: CYMBALTA PO SCH (09:43)
[2020-06-11] MEDS: TRICOR TAB 160 MG PO SCH (09:43)
[2020-06-11] MEDS: NEURONTIN CAP 400 MG PO SCH ×3 (09:43→23:36)
[2020-06-11] MEDS: VITAMIN D3 125 mcg (5,000 UNITS) PO SCH (09:44)
[2020-06-11] MEDS: XANAX PO SCH ×3 (09:44→23:36)
[2020-06-11] MEDS: NS 1000 ML 1,000 ML IV SCH ×4 (10:29→23:03)
[2020-06-11] MEDS: REMDESIVIR 100 MG in NS 250 ML IV 250 ML IV SCH (11:09)
[2020-06-11] MEDS ORDERED: LASIX IVP ONE (16:34)
[2020-06-11] MEDS: SNACK - Diabetic Appropriate PO SCH (20:11)
--- NOTE | 2020-06-11 22:06 | PCM.PROG ---
Progress Note - Progress Note for Day of Date of Exam: 06/10/20 - Subjective Subjective: WAS ADMITTED FOR TREATMENT OF PNEUMONIA DUE TO COVID-19, RESPIRATORY DISTRESS, CIRRHOSIS, AND HYPOXIA. TODAY, SHE IS ALERT AND ORIENTED, LYING IN BED ON MORNING ROUNDS. SHE CONTINUES WITH COMPLAINTS OF COUGH, SHORTNESS OF BREATH, AND WEAKNESS. TODAY. HE REPORTS INCREASED SHORNTESS OF BREATH COMPARED TO YESTERDAY. SHE IS CURRENTLY UTILIZING HEATED HIGH FLOW OXYGEN AT 45 LPM, FI02 93. HER OXYGEN SATURATIONS DID FALL TO 66% WHILE AMBULATING THIS MORNING. THEY DID INCREASE TO THE LOW 80s AFTER SHE RETURNED TO BED. SHE CONTINUES TO HAVE LABORED BREATHING THIS MORNING. ON EXAMINATION, SHE IS SLIGHTLY TACHYCARDIC WITH HR 100-110. SHE IS TACHYPNEIC WITH RR IN THE 40s. BILATERAL LUNGS ARE NOTED WITH SCATTERED WHEEZING THROUGHOUT. ABDOMEN IS ROUND, SOFT, AND NON-TENDER WITH NORMAL BOWEL SOUNDS NOTED IN ALL QUADRANTS. HER VITALS THIS MORNING ARE: 98.9-104-36-85%HHF-119/69. LABS WERE OBTAINED. ABNORMAL LAB VALUES INCLUDE THE FOLLOWING: PLT COUNT 80, SODIUM 135, POTASSIUM 3.4, CARBON DIOXIDE 16.7, BUN 43, CREAITNINE 1.81, GLUCOSE 250, CALCIUM 8.0, MAGNESIUM 1.6, FERRITIN 4132, AST 179, ALT 103, CRP 94.60, ALBUMIN 2.6. AN ABG WAS OBTAINED THIS MORNING AND REVEALED: PH 7.380, PC02 25.0, P02 47.0, HC03 14.8, 02 SAT 82, FI02 83.0. A CHEST XRAY WAS OBTAINED AND REVEALED: Cardiac and mediastinal contours appear stable. No significant change in airspace and interstitial opacities, worse on the left. No pleural effusion or pneumothorax. SHE IS CURRENTLY RECEIVING REMDESIVIR 100MG IV DAILY, LEVAQUIN 500MG IV DAILY, SOLU- MEDROL 40MG IV Q8H, DUONEBS QID, PULMICORT NEBS BID, LOVENOX 30MG SC DAILY, PEPCID 20MG IV Q12H, PROTONIX 40MG IV BID, HUMULIN R SLIDING SCALE, AND HER HOME MEDICATIONS WERE RESUMED. WE ORDERED ONE UNIT OF CONVALESCENT PLASMA, TO BE TRANSFUSED WHEN IT ITS AVAILABLE. TODAY, WE WILL PLACE PATIENT ON THE BIPAP, MORPHINE 1MG/HR BATTERY ASSEMBLER, AND WE WILL ALSO ADD MORPHINE TO HER NEB TREATMENTS. OTHERWISE, WE WILL FOLLOW UP WITH AM LABS, CHEST XRAY, AND ABG AND CONTINUE TO MONITOR. - Past Medical Family Social History Past Med/Fam/Surg Hx: No changes since H&P Allergies: Allergies ondansetron [From Zofran] Allergy (Verified 06/08/20 21:27) codeine Adverse Reaction (Verified 10/07/17 15:10) Sulfa (Sulfonamide Antibiotics) Adverse Reaction (Verified 10/07/17 15:10) - Review of Systems ROS: No change since H&P - Vital Signs and I&O's Vital Signs: Temperature 98.1 F Pulse Rate [Apical] 96 Pulse Rate 100 Respiratory Rate 13 Blood Pressure [Right Arm] 113/62 Blood Pressure [Left Arm] 94/76 Blood Pressure 116/63 O2 Sat by Pulse Oximetry 91 Intake and Output: Intake & Output 06/09/20 06/10/20 06/11/20 06/12/20 11:59 11:59 11:59 11:59 Intake Total 605 / 605 2360 / 2360 2292 / 2292 2250 / 2250 Output Total 1500 / 1500 1675 / 1675 550 / 550 Balance 605 / 605 860 / 860 617 / 617 1700 / 1700 - Physical Exam Oriented: Normal Eyes: Normal Ear: Normal Nose: Normal Throat: Normal Respiratory: Generalized, Diminished, Wheezes Cardiovascular: Normal : Normal Auscultation: Bowel Sounds: Normal Palpation: Normal Tenderness: Normal Skin: Normal Musculoskeletal: Normal Psychiatric: Normal Mood Description: Calm Affect: Normal Speech Pattern: Clear, Appropriate - Laboratory and Diagnostics Result Diagrams: 06/11/20 04:35 06/11/20 04:35 Labs: 06/09/20 09:40 Stool Stool Culture - Final 06/09/20 09:40 Stool - Final Laboratory WBC 6.2 X10^3/uL (3.6-10.0) 06/11/20 04:35 RBC 4.70 X10^6/uL (3.5-5.4) 06/11/20 04:35 Hgb 13.2 g/dL (12.0-16.0) 06/11/20 04:35 Hct 37.7 % (36.0-47.0) 06/11/20 04:35 MCV 80.2 fL (80.0-100.0) 06/11/20 04:35 MCH 28.0 pg (27.0-34.0) 06/11/20 04:35 MCHC 34.9 g/dL (33.0-35.0) 06/11/20 04:35 RDW 15.0 % (11.6-16.5) 06/11/20 04:35 Plt Count 92 X10^3/uL (150.0-450.0) L 06/11/20 04:35 Plt Count Comment Decreased (ADEQUATE) A 06/09/20 07:32 MPV 8.3 fL (7.4-11.0) 06/11/20 04:35 Neut % (Auto) 80.7 % (42.0-75.0) H 06/11/20 04:35 Lymph % (Auto) 10.9 % (21.0-51.0) L 06/11/20 04:35 [place] % (Auto) 8.4 % (0.0-13.0) 06/11/20 04:35 Eos % (Auto) 0.0 % (0.9-2.9) L 06/11/20 04:35 Baso % (Auto) 0 % (0.2-1.0) L 06/11/20 04:35 Neut # (Auto) 5.0 x10^3/uL (2.2-4.8) H 06/11/20 04:35 Lymph # (Auto) 0.7 X10^3/uL (1.3-2.9) L 06/11/20 04:35 [place] # (Auto) 0.5 x10^3/uL (0.3-0.8) 06/11/20 04:35 Eos # (Auto) 0.0 x10^3/uL (0.0-0.2) 06/11/20 04:35 Baso # (Auto) 0.0 X10^3/uL (0.0-0.1) 06/11/20 04:35 Absolute Nucleated RBC 0.1 /100WBC 06/11/20 04:35 Total Counted 50 06/09/20 07:32 Neutrophils % (Manual) 72 % (39-76) 06/09/20 07:32 Band Neutrophils % 10 % (0-10) 06/09/20 07:32 Lymphocytes % (Manual) 16 % (13-43) 06/09/20 07:32 Monocytes % (Manual) 2 % (4-9) L 06/09/20 07:32 Plt Morphology Comment Normal (NORMAL) 06/09/20 07:32 RBC Morphology Normal (NORMAL) 06/09/20 07:32 D-Dimer 0.64 ug/ml (0.0-0.57) H* 06/08/20 21:26 Sample Site Rr 06/11/20 05:00 ABG pH 7.330 (7.35-7.45) L 06/11/20 05:00 ABG pCO2 42.0 mmHg (35.0-45.0) 06/11/20 05:00 ABG pO2 57.0 mmHg (80.0-100.0) L 06/11/20 05:00 ABG HCO3 22.1 mmol/L (22-26) 06/11/20 05:00 ABG O2 Saturation 87.0 % (90-100) L 06/11/20 05:00 ABG Base Excess -3.7 mmol/L (-2.0-2.0) L 06/11/20 05:00 Tashi Test Pos 06/11/20 05:00 A-a Gradient 604.0 mmHg 06/11/20 05:00 FiO2 100 06/11/20 05:00 Blood Gas Comments [facility] well 06/11/20 05:00 Sodium 138 mmol/L (136-145) 06/11/20 04:35 Corrected Sodium 143 mmol/L (136-145) 06/11/20 04:35 Potassium 4.4 mmol/L (3.5-5.1) 06/11/20 04:35 Chloride 104 mmol/L (98-107) 06/11/20 04:35 Carbon Dioxide 22.8 mmol/L (21-32) 06/11/20 04:35 BUN 51 mg/dL (7-18) H 06/11/20 04:35 Creatinine 1.51 mg/dL (0.55-1.02) H 06/11/20 04:35 Est GFR (MDRD) Af Amer 45 (>60) L 06/11/20 04:35 Est GFR (MDRD) Non-Af 37 (>60) L 06/11/20 04:35 Glucose 328 mg/dL (65-99) H 06/11/20 04:35 POC Glucose (mg/dL) 280 mg/dL (65-99) H 06/11/20 20:16 Calcium 8.1 mg/dL (8.5-10.1) L 06/11/20 04:35 Corrected Calcium 9.2 mg/dL (8.5-10.1) 06/11/20 04:35 Magnesium 1.6 mg/dL (1.7-2.9) L 06/10/20 04:55 Ferritin 4239 ng/mL (8-252) H 06/11/20 04:35 Total Bilirubin 1.00 mg/dL (0.2-1.0) 06/11/20 04:35 AST 161 Units/L (15-37) H 06/11/20 04:35 ALT 86 Units/L (12-78) H 06/11/20 04:35 Alkaline Phosphatase 146 Units/L (46-116) H 06/11/20 04:35 Ammonia 32 umol/L (11-32) 06/09/20 11:43 Creatine Kinase 126 Units/L (26-192) 06/09/20 07:32 CK-MB (CK-2) < 1.0 ng/mL (0-4.0) 06/09/20 07:32 CK/CKMB % Calc 0.8 % (<4) 06/09/20 07:32 Troponin I < 0.02 ng/mL (0-1.5) 06/09/20 07:32 C-Reactive Protein 61.90 mg/L (0-3.0) H 06/11/20 04:35 B-Natriuretic Peptide 22.3 pg/mL (0-79) 06/09/20 07:32 Total Protein 6.6 g/dL (6.4-8.2) 06/11/20 04:35 Albumin 2.6 g/dL (3.4-5.0) L 06/11/20 04:35 Globulin 4.0 g/dL (2.5-4.5) 06/11/20 04:35 Albumin/Globulin Ratio 0.7 Ratio (1.1-2.1) L 06/11/20 04:35 Specimen Type Catherized urine 06/09/20 08:48 Urine Color Dark yellow (YELLOW) 06/09/20 08:48 Urine Appearance Clear (CLEAR) 06/09/20 08:48 Urine pH 5.0 (5.0 - 8.0) 06/09/20 08:48 Ur Specific [place] 1.015 (1.000-1.030) 06/09/20 08:48 Urine Protein 2+ (NEGATIVE) 06/09/20 08:48 Urine Glucose (UA) 1+ (NEGATIVE) 06/09/20 08:48 Urine Ketones 1+ (NEGATIVE) 06/09/20 08:48 Urine Occult Blood 5+ (NEGATIVE) 06/09/20 08:48 Urine Nitrite Negative (NEGATIVE) 06/09/20 08:48 Urine Bilirubin Negative (NEGATIVE) 06/09/20 08:48 Urine Urobilinogen 1+ (NORMAL) 06/09/20 08:48 Ur Leukocyte Esterase Negative (NEGATIVE) 06/09/20 08:48 Urine RBC 20-30 /HPF (0-3) A 06/09/20 08:48 Urine WBC 0-2 /HPF (0-5) 06/09/20 08:48 Ur Squamous Epith Cells Few /HPF (NEGATIVE) 06/09/20 08:48 Amorphous Sediment Trace /HPF (NEGATIVE) 06/09/20 08:48 Urine Bacteria Trace /HPF (NEGATIVE) 06/09/20 08:48 Ur Culture Indicated? No/not indicated 06/09/20 08:48 Stool Description 100g brown liquid 06/09/20 09:40 Stl Occult Blood (IFOB) Positive (NEGATIVE) A 06/09/20 09:40 Stool for White Cells Positive (NEGATIVE) A 06/09/20 09:40 Stl C. diff Tox B Gene Negative (NEGATIVE) 06/09/20 09:40 Stl C. diff [id number] Negative (NEGATIVE) 06/09/20 09:40 Influenza Type A (PCR) Negative (NEGATIVE) 06/09/20 10:30 Influenza Type B (PCR) Negative (NEGATIVE) 06/09/20 10:30 Blood Type AB POSITIVE 06/09/20 10:23 - Plan (1) Pneumonia due to 2019 novel coronavirus Status: Acute Plan: REMDESIVIR 100MG IV DAILY, LEVAQUIN 500MG IV DAILY, SOLU-MEDROL 40MG IV Q8H, DUONEBS QID, PULMICORT NEBS BID, LOVENOX 30MG SC DAILY, PEPCID 20MG IV Q12H, PROTONIX 40MG IV BID, HUMULIN R SLIDING SCALE, AND MORPHINE 1MG/HR BATTERY ASSEMBLER, MORPHINE IN NEBS TX, HER HOME MEDICATIONS WERE RESUMED. ONE UNIT OF CONVALESCENT PLASMA, TO BE TRANSFUSED WHEN IT ITS AVAILABLE. BIPAP (2) Respiratory distress Status: Acute (3) Hypoxia Status: Acute (4) Cirrhosis Status: Acute Qualifiers: Hepatic cirrhosis type: unspecified hepatic cirrhosis Ascites presence: without ascites Qualified Code(s): K74.60 - Unspecified cirrhosis of liver (5) Diabetes mellitus Status: Chronic Qualifiers: Diabetes mellitus type: type 2 Diabetes mellitus custodial insulin use: with intermediate card tender use Diabetes mellitus complication status: with other specified complication Qualified Code(s): E11.69 - Type 2 diabetes mellitus with other specified complication; Z79.4 - prison (current) use of insulin
--- NOTE | 2020-06-11 22:55 | PCM.PROG ---
Progress Note - Progress Note for Day of Date of Exam: 06/11/20 - Subjective Subjective: WAS ADMITTED FOR TREATMENT OF PNEUMONIA DUE TO COVID-19, RESPIRATORY DISTRESS, CIRRHOSIS, AND HYPOXIA. TODAY, SHE IS ALERT AND ORIENTED, LYING IN BED ON MORNING ROUNDS. SHE CONTINUES WITH COMPLAINTS OF COUGH, SHORTNESS OF BREATH, AND WEAKNESS. TODAY. SHE DENIES SIGNIFICANT IMPROVEMENT SINCE YESTERDAY. SHE IS CURRENTLY UTILIZING THE BIPAP. HER OXYGEN SATURATIONS ON THE BIPAP HAVE BEEN 88-91%. ON EXAMINATION, HEART IS REGULAR IN RATE AND RHYTHM. BILATERAL LUNGS ARE NOTED WITH SCATTERED WHEEZING THROUGHOUT. ABDOMEN IS ROUND, SOFT, AND NON-TENDER WITH NORMAL BOWEL SOUNDS NOTED IN ALL QUADRANTS. HER VITALS THIS MORNING ARE: 98.1-94-15-91%-113/63. LABS WERE OBTAINED. ABNORMAL LAB VALUES INCLUDE THE FOLLOWING: PLT COUNT 92, SODIUM 135, POTASSIUM 3.4, CARBON DIOXIDE 16.7, BUN 43, CREATININE 1.81, GLUCOSE 250, CALCIUM 8.0, MAGNESIUM 1.6, FERRITIN 4132, AST 179, ALT 103, CRP 94.60, ALBUMIN 2.6. AN ABG WAS OBTAINED THIS MORNING AND REVEALED: PH 7.330, PC02 42, P02 57.0, HC03 22.1, 02 SAT 87.0, FI02 100. A CHEST XRAY WAS OBTAINED AND REVEALED: Stable ground-glass and interstitial radiopacities involving the perihilar region and the lower lobes left more than right. SHE IS CURRENTLY RECEIVING REMDESIVIR 100MG IV DAILY, LEVAQUIN 500MG IV DAILY, SOLU-MEDROL 40MG IV Q8H, DUONEBS QID, PULMICORT NEBS BID, LOVENOX 30MG SC DAILY, PEPCID 20MG IV Q12H, PROTONIX 40MG IV BID, HUMULIN R SLIDING SCALE, MORPHINE 1MG/HR ORDER CLERK, MORPHINE TO HER NEB TREATMENTS, AND HER HOME MEDICATIONS WERE RESUMED. WE ORDERED ONE UNIT OF CONVALESCENT PLASMA, TO BE TRANSFUSED WHEN IT ITS AVAILABLE. WE WILL CONTINUE WITH CURRENT PLAN OF CARE TODAY. OTHERWISE, WE WILL FOLLOW UP WITH AM LABS, CHEST XRAY, AND ABG AND CONTINUE TO MONITOR. - Past Medical Family Social History Past Med/Fam/Surg Hx: No changes since H&P Allergies: Allergies ondansetron [From Zofran] Allergy (Verified 06/08/20 21:27) codeine Adverse Reaction (Verified 10/07/17 15:10) Sulfa (Sulfonamide Antibiotics) Adverse Reaction (Verified 10/07/17 15:10) - Review of Systems ROS: No change since H&P - Vital Signs and I&O's Vital Signs: Temperature 98.1 F Pulse Rate [Apical] 96 Pulse Rate 100 Respiratory Rate 13 Blood Pressure [Right Arm] 113/62 Blood Pressure [Left Arm] 94/76 Blood Pressure 116/63 O2 Sat by Pulse Oximetry 91 Intake and Output: Intake & Output 06/09/20 06/10/20 06/11/20 06/12/20 11:59 11:59 11:59 11:59 Intake Total 605 / 605 2360 / 2360 2292 / 2292 2250 / 2250 Output Total 1500 / 1500 1675 / 1675 550 / 550 Balance 605 / 605 860 / 860 617 / 617 1700 / 1700 - Physical Exam Oriented: Normal Eyes: Normal Ear: Normal Nose: Normal Throat: Normal Respiratory: Generalized, Diminished, Wheezes Cardiovascular: Normal : Normal Auscultation: Bowel Sounds: Normal Palpation: Normal Tenderness: Normal Skin: Normal Musculoskeletal: Normal Psychiatric: Normal Mood Description: Calm Affect: Normal Speech Pattern: Clear, Delayed - Laboratory and Diagnostics Result Diagrams: 06/11/20 04:35 06/11/20 04:35 Labs: 06/09/20 09:40 Stool Stool Culture - Final 06/09/20 09:40 Stool - Final Laboratory WBC 6.2 X10^3/uL (3.6-10.0) 06/11/20 04:35 RBC 4.70 X10^6/uL (3.5-5.4) 06/11/20 04:35 Hgb 13.2 g/dL (12.0-16.0) 06/11/20 04:35 Hct 37.7 % (36.0-47.0) 06/11/20 04:35 MCV 80.2 fL (80.0-100.0) 06/11/20 04:35 MCH 28.0 pg (27.0-34.0) 06/11/20 04:35 MCHC 34.9 g/dL (33.0-35.0) 06/11/20 04:35 RDW 15.0 % (11.6-16.5) 06/11/20 04:35 Plt Count 92 X10^3/uL (150.0-450.0) L 06/11/20 04:35 Plt Count Comment Decreased (ADEQUATE) A 06/09/20 07:32 MPV 8.3 fL (7.4-11.0) 06/11/20 04:35 Neut % (Auto) 80.7 % (42.0-75.0) H 06/11/20 04:35 Lymph % (Auto) 10.9 % (21.0-51.0) L 06/11/20 04:35 [place] % (Auto) 8.4 % (0.0-13.0) 06/11/20 04:35 Eos % (Auto) 0.0 % (0.9-2.9) L 06/11/20 04:35 Baso % (Auto) 0 % (0.2-1.0) L 06/11/20 04:35 Neut # (Auto) 5.0 x10^3/uL (2.2-4.8) H 06/11/20 04:35 Lymph # (Auto) 0.7 X10^3/uL (1.3-2.9) L 06/11/20 04:35 [place] # (Auto) 0.5 x10^3/uL (0.3-0.8) 06/11/20 04:35 Eos # (Auto) 0.0 x10^3/uL (0.0-0.2) 06/11/20 04:35 Baso # (Auto) 0.0 X10^3/uL (0.0-0.1) 06/11/20 04:35 Absolute Nucleated RBC 0.1 /100WBC 06/11/20 04:35 Total Counted 50 06/09/20 07:32 Neutrophils % (Manual) 72 % (39-76) 06/09/20 07:32 Band Neutrophils % 10 % (0-10) 06/09/20 07:32 Lymphocytes % (Manual) 16 % (13-43) 06/09/20 07:32 Monocytes % (Manual) 2 % (4-9) L 06/09/20 07:32 Plt Morphology Comment Normal (NORMAL) 06/09/20 07:32 RBC Morphology Normal (NORMAL) 06/09/20 07:32 D-Dimer 0.64 ug/ml (0.0-0.57) H* 06/08/20 21:26 Sample Site Rr 06/11/20 05:00 ABG pH 7.330 (7.35-7.45) L 06/11/20 05:00 ABG pCO2 42.0 mmHg (35.0-45.0) 06/11/20 05:00 ABG pO2 57.0 mmHg (80.0-100.0) L 06/11/20 05:00 ABG HCO3 22.1 mmol/L (22-26) 06/11/20 05:00 ABG O2 Saturation 87.0 % (90-100) L 06/11/20 05:00 ABG Base Excess -3.7 mmol/L (-2.0-2.0) L 06/11/20 05:00 Tashi Test Pos 06/11/20 05:00 A-a Gradient 604.0 mmHg 06/11/20 05:00 FiO2 100 06/11/20 05:00 Blood Gas Comments Esteban well sw 06/11/20 05:00 Sodium 138 mmol/L (136-145) 06/11/20 04:35 Corrected Sodium 143 mmol/L (136-145) 06/11/20 04:35 Potassium 4.4 mmol/L (3.5-5.1) 06/11/20 04:35 Chloride 104 mmol/L (98-107) 06/11/20 04:35 Carbon Dioxide 22.8 mmol/L (21-32) 06/11/20 04:35 BUN 51 mg/dL (7-18) H 06/11/20 04:35 Creatinine 1.51 mg/dL (0.55-1.02) H 06/11/20 04:35 Est GFR (MDRD) Af Amer 45 (>60) L 06/11/20 04:35 Est GFR (MDRD) Non-Af 37 (>60) L 06/11/20 04:35 Glucose 328 mg/dL (65-99) H 06/11/20 04:35 POC Glucose (mg/dL) 280 mg/dL (65-99) H 06/11/20 20:16 Calcium 8.1 mg/dL (8.5-10.1) L 06/11/20 04:35 Corrected Calcium 9.2 mg/dL (8.5-10.1) 06/11/20 04:35 Magnesium 1.6 mg/dL (1.7-2.9) L 06/10/20 04:55 Ferritin 4239 ng/mL (8-252) H 06/11/20 04:35 Total Bilirubin 1.00 mg/dL (0.2-1.0) 06/11/20 04:35 AST 161 Units/L (15-37) H 06/11/20 04:35 ALT 86 Units/L (12-78) H 06/11/20 04:35 Alkaline Phosphatase 146 Units/L (46-116) H 06/11/20 04:35 Ammonia 32 umol/L (11-32) 06/09/20 11:43 Creatine Kinase 126 Units/L (26-192) 06/09/20 07:32 CK-MB (CK-2) < 1.0 ng/mL (0-4.0) 06/09/20 07:32 CK/CKMB % Calc 0.8 % (<4) 06/09/20 07:32 Troponin I < 0.02 ng/mL (0-1.5) 06/09/20 07:32 C-Reactive Protein 61.90 mg/L (0-3.0) H 06/11/20 04:35 B-Natriuretic Peptide 22.3 pg/mL (0-79) 06/09/20 07:32 Total Protein 6.6 g/dL (6.4-8.2) 06/11/20 04:35 Albumin 2.6 g/dL (3.4-5.0) L 06/11/20 04:35 Globulin 4.0 g/dL (2.5-4.5) 06/11/20 04:35 Albumin/Globulin Ratio 0.7 Ratio (1.1-2.1) L 06/11/20 04:35 Specimen Type Catherized urine 06/09/20 08:48 Urine Color Dark yellow (YELLOW) 06/09/20 08:48 Urine Appearance Clear (CLEAR) 06/09/20 08:48 Urine pH 5.0 (5.0 - 8.0) 06/09/20 08:48 Ur Specific [place] 1.015 (1.000-1.030) 06/09/20 08:48 Urine Protein 2+ (NEGATIVE) 06/09/20 08:48 Urine Glucose (UA) 1+ (NEGATIVE) 06/09/20 08:48 Urine Ketones 1+ (NEGATIVE) 06/09/20 08:48 Urine Occult Blood 5+ (NEGATIVE) 06/09/20 08:48 Urine Nitrite Negative (NEGATIVE) 06/09/20 08:48 Urine Bilirubin Negative (NEGATIVE) 06/09/20 08:48 Urine Urobilinogen 1+ (NORMAL) 06/09/20 08:48 Ur Leukocyte Esterase Negative (NEGATIVE) 06/09/20 08:48 Urine RBC 20-30 /HPF (0-3) A 06/09/20 08:48 Urine WBC 0-2 /HPF (0-5) 06/09/20 08:48 Ur Squamous Epith Cells Few /HPF (NEGATIVE) 06/09/20 08:48 Amorphous Sediment Trace /HPF (NEGATIVE) 06/09/20 08:48 Urine Bacteria Trace /HPF (NEGATIVE) 06/09/20 08:48 Ur Culture Indicated? No/not indicated 06/09/20 08:48 Stool Description 100g brown liquid 06/09/20 09:40 Stl Occult Blood (IFOB) Positive (NEGATIVE) A 06/09/20 09:40 Stool for White Cells Positive (NEGATIVE) A 06/09/20 09:40 Stl C. diff Tox B Gene Negative (NEGATIVE) 06/09/20 09:40 Stl C. diff [id number] Negative (NEGATIVE) 06/09/20 09:40 Influenza Type A (PCR) Negative (NEGATIVE) 06/09/20 10:30 Influenza Type B (PCR) Negative (NEGATIVE) 06/09/20 10:30 Blood Type AB POSITIVE 06/09/20 10:23 - Plan (1) Pneumonia due to 2019 novel coronavirus Status: Acute Plan: REMDESIVIR 100MG IV DAILY, LEVAQUIN 500MG IV DAILY, SOLU-MEDROL 40MG IV Q8H, DUONEBS QID, PULMICORT NEBS BID, LOVENOX 30MG SC DAILY, PEPCID 20MG IV Q12H, PROTONIX 40MG IV BID, HUMULIN R SLIDING SCALE, AND MORPHINE 1MG/HR ORDER CLERK, MORPHINE IN NEBS [place], HER HOME MEDICATIONS WERE RESUMED. ONE UNIT OF CONVALESCENT PLASMA, TO BE TRANSFUSED WHEN IT ITS AVAILABLE. BIPAP (2) Respiratory distress Status: Acute (3) Hypoxia Status: Acute (4) Cirrhosis Status: Acute Qualifiers: Hepatic cirrhosis type: unspecified hepatic cirrhosis Ascites presence: without ascites Qualified Code(s): K74.60 - Unspecified cirrhosis of liver (5) Diabetes mellitus Status: Chronic Qualifiers: Diabetes mellitus type: type 2 Diabetes mellitus terminal worker insulin use: with correction use Diabetes mellitus complication status: with other specified complication Qualified Code(s): E11.69 - Type 2 diabetes mellitus with other specified complication; Z79.4 - [facility] (current) use of insulin
[2020-06-12] MEDS: NS 1000 ML 1,000 ML IV SCH ×5 (03:50→18:52)
[2020-06-12] MEDS: SOLU-Medrol 40 MG VIAL IVP SCH ×3 (05:48→21:00)
[2020-06-12] MEDS: TESSALON PERLES PO SCH ×3 (05:49→21:00)
[2020-06-12] MEDS: HumuLIN R SUBCUT PRN ×3 (05:50→16:59)
[2020-06-12 06:05] LABS: BASOPHILS % (AUTO) 0.1 % (0.2-1.0); HEMATOCRIT 36.5 % (36.0-47.0); HEMOGLOBIN 12.6 g/dL (12.0-16.0); LYMPHOCYTES # (AUTO) 0.4 X10^3/uL (1.3-2.9); LYMPHOCYTES % (AUTO) 6.7 % (21.0-51.0); MEAN CORPUSCULAR HEMOGLOBIN 27.9 pg (27.0-34.0); MEAN CORPUSCULAR HGB CONC 34.4 g/dL (33.0-35.0); MEAN CORPUSCULAR VOLUME 80.9 fL (80.0-100.0); MEAN PLATELET VOLUME 8.9 fL (7.4-11.0); MONOCYTES # (AUTO) 0.5 x10^3/uL (0.3-0.8); MONOCYTES % (AUTO) 8.4 % (0.0-13.0); NEUTROPHILS # (AUTO) 4.8 x10^3/uL (2.2-4.8); NEUTROPHILS % (AUTO) 84.8 % (42.0-75.0); PLATELET COUNT 88 X10^3/uL (150.0-450.0); RED BLOOD COUNT 4.51 X10^6/uL (3.5-5.4); RED CELL DISTRIBUTION WIDTH 15.2 % (11.6-16.5); WHITE BLOOD COUNT 5.7 X10^3/uL (3.6-10.0)
[2020-06-12 06:27] LABS: ALBUMIN 2.5 g/dL (3.4-5.0); CALCIUM 7.6 mg/dL (8.5-10.1); CARBON DIOXIDE 22.6 mmol/L (21-32); COR CA(FOR HYPOALB) 8.8 mg/dL (8.5-10.1); CREATININE 1.37 mg/dL (0.55-1.02); TOTAL PROTEIN 6.3 g/dL (6.4-8.2)
[2020-06-12 06:39] LABS: ABG BASE EXCESS 0.1 mmol/L (-2.0-2.0); ABG HCO3 25.4 mmol/L (22-26)
--- NOTE | 2020-06-12 06:39 | RAD ---
HISTORYCOVID, SOBSTUDYCHEST, 1 VIEWCOMPARISONOne day prior.TECHNIQUEAP view of the chestFINDINGSCardiac and mediastinal contours are stable. Similar appearance of left worse than right basilar predominant airspace disease. No definite pleural effusion or pneumothorax.IMPRESSIONSimilar appearance to prior.Electronically signed by: Chan Tucker (Jun 12, 2020 06:38:17)
[2020-06-12 07:05] LABS: PLATELET MORPHOLOGY COMMENT NORMAL (NORMAL)
[2020-06-12] MEDS: MORPHINE SULFATE JET NEB NEB SCH ×3 (08:25→21:54)
[2020-06-12] MEDS: DUONEB 0.5 MG/3 MG (3 mL) NEB SCH ×4 (08:25→21:54)
[2020-06-12] MEDS: PULMICORT NEB TX 0.5 MG NEB SCH ×2 (08:25→21:54)
[2020-06-12] MEDS: PROTONIX INJ 40 MG VIAL IVP SCH ×2 (09:16→20:15)
[2020-06-12] MEDS: REMDESIVIR 100 MG in NS 250 ML IV 250 ML IV SCH (09:17)
[2020-06-12] MEDS: LOVENOX INJ 30 MG SYR SC SCH ×2 (09:29→20:14)
[2020-06-12] MEDS: VERSED IVP PRN ×8 (10:23→22:20)
[2020-06-12] MEDS: AMARYL TAB 4 MG PO SCH (10:41)
[2020-06-12] MEDS: JANUVIA PO SCH (10:42)
[2020-06-12] MEDS: GLUCOPHAGE PO SCH (10:42)
[2020-06-12] MEDS: LEVAQUIN PREMIX IV 250 MG 250 MG/50 ML BAG IV SCH (10:42)
[2020-06-12] MEDS: LEVEMIR SC SCH (10:43)
[2020-06-12] MEDS: NEURONTIN CAP 400 MG PO SCH ×2 (10:43→20:15)
[2020-06-12] MEDS: CYMBALTA PO SCH (11:25)
[2020-06-12] MEDS: PEPCID 20 MG IV PREMIX* 20 MG/50 ML BAG IV SCH (11:26)
[2020-06-12] MEDS: HALDOL INJ IM PRN ×2 (11:26→16:13)
[2020-06-12] MEDS: ALBUMIN HUMAN 25%- 100 ML 100 ML IV SCH (11:48)
[2020-06-12] MEDS ORDERED: ATIVAN INJ 2 MG VIAL IVP PRN (12:21)
[2020-06-12] MEDS ORDERED: VERSED IVP SCH (13:00)
[2020-06-12] MEDS ORDERED: LASIX IVP ONE (15:29)
[2020-06-12 19:58] VITALS: BMI 32.5
[2020-06-12] MEDS: SNACK - Diabetic Appropriate PO SCH (20:13)
[2020-06-12] MEDS: COLACE CAP 100 MG PO SCH (20:14)
[2020-06-13] MEDS: VERSED IVP PRN ×5 (00:01→07:52)
[2020-06-13] MEDS: HALDOL INJ IM PRN ×2 (01:30→07:29)
[2020-06-13] MEDS ORDERED: VERSED ONE ×4 (03:35→07:41)
[2020-06-13] MEDS: TESSALON PERLES PO SCH ×3 (05:25→21:08)
[2020-06-13] MEDS: SOLU-Medrol 40 MG VIAL IVP SCH ×3 (05:25→21:08)
[2020-06-13 05:42] LABS: ALBUMIN 3.1 g/dL (3.4-5.0); CALCIUM 7.9 mg/dL (8.5-10.1); CARBON DIOXIDE 28.2 mmol/L (21-32); COR CA(FOR HYPOALB) 8.6 mg/dL (8.5-10.1); CREATININE 1.35 mg/dL (0.55-1.02); TOTAL PROTEIN 6.5 g/dL (6.4-8.2)
[2020-06-13 06:00] LABS: BASOPHILS % (AUTO) 0 % (0.2-1.0); HEMATOCRIT 35.5 % (36.0-47.0); HEMOGLOBIN 12.3 g/dL (12.0-16.0); LYMPHOCYTES # (AUTO) 0.5 X10^3/uL (1.3-2.9); LYMPHOCYTES % (AUTO) 7.2 % (21.0-51.0); MEAN CORPUSCULAR HGB CONC 34.7 g/dL (33.0-35.0); MEAN CORPUSCULAR VOLUME 80.7 fL (80.0-100.0); MEAN PLATELET VOLUME 8.6 fL (7.4-11.0); MONOCYTES # (AUTO) 0.6 x10^3/uL (0.3-0.8); MONOCYTES % (AUTO) 9.6 % (0.0-13.0); NEUTROPHILS # (AUTO) 5.6 x10^3/uL (2.2-4.8); NEUTROPHILS % (AUTO) 83.2 % (42.0-75.0); PLATELET COUNT 94 X10^3/uL (150.0-450.0); RED CELL DISTRIBUTION WIDTH 14.7 % (11.6-16.5); WHITE BLOOD COUNT 6.7 X10^3/uL (3.6-10.0)
[2020-06-13 06:01] LABS: ABG BASE EXCESS -0.8 mmol/L (-2.0-2.0); ABG HCO3 24.3 mmol/L (22-26)
[2020-06-13 06:02] LABS: ABG ALLEN TEST POS
--- NOTE | 2020-06-13 06:14 | RAD ---
HISTORYSOB pneumoniaSTUDYAP [id number]/18/2020FINDINGSStable heart size and contour. Similar extent and distribution bilateral pulmonary infiltrates. There is no evidence for developing pleural effusion or extrapulmonary air complication.IMPRESSIONNo change in appearance of the chest since 1 day prior. Persistent infiltrates consistent with pneumonia.Electronically signed by: DAVID MEMBRENO (Jun 13, 2020 06:13:18)
[2020-06-13] MEDS: CYMBALTA PO SCH (08:18)
[2020-06-13] MEDS: NEURONTIN CAP 400 MG PO SCH ×2 (08:18→20:40)
[2020-06-13] MEDS ORDERED: VERSED IV PRN ×2 (08:43)
[2020-06-13] MEDS ORDERED: NS IV PRN ×2 (08:43)
[2020-06-13] MEDS: ALBUMIN HUMAN 25%- 100 ML 100 ML IV SCH (08:46)
[2020-06-13] MEDS: LOVENOX INJ 30 MG SYR SC SCH (08:48)
[2020-06-13] MEDS: LEVAQUIN PREMIX IV 250 MG 250 MG/50 ML BAG IV SCH (08:48)
[2020-06-13] MEDS: LEVEMIR SC SCH (08:48)
[2020-06-13] MEDS: NS 1000 ML 1,000 ML IV SCH (08:49)
[2020-06-13] MEDS: PROTONIX INJ 40 MG VIAL IVP SCH ×2 (09:00→20:48)
[2020-06-13] MEDS: PULMICORT NEB TX 0.5 MG NEB SCH ×2 (09:44→21:12)
[2020-06-13] MEDS: DUONEB 0.5 MG/3 MG (3 mL) NEB SCH ×4 (09:44→21:12)
--- NOTE | 2020-06-13 10:52 | DR.UPDATE ---
H&P Update History and Physical Update: History and Physical reviewed and patient examined. Changes noted: NO Yes with the following:will place central line for iv access. H&P Reviewed: Yes Patient was examined?: Yes Procedures (ALL) - Central Line Placement PCM.CLCO: written consent Time out performed: Yes Patient placed pm monitor/pulse ox: Yes prep: mask, gown, gloves Centrial line prep: chlorhexidine scrub, sterile drapes applied Local anesthsia used: lidocane 1% Ultrasound used for placement: Yes (R IJ id'd via u/s. cannulation visualized with u/s) Central line lumen ininserted: triple Post procedure: sutured in place, good blood return, all ports aspirated, flushed,capped, sterile dressing applied Post procedure xray: tip oc catheter in good position, no pneumothorax seen Patient tolerated procedure: Yes Complications: none
[2020-06-13] MEDS: MORPHINE SULFATE JET NEB NEB SCH ×4 (10:59→21:12)
--- NOTE | 2020-06-13 11:00 | RAD ---
HISTORYCentral line placementSTUDYAP chest two viewsCOMPARISON5:36 a.m. 06/13/2020FINDINGSThere is no significant interval change in appearance of heart or lungs. Diffuse bilateral confluent airspace disease again noted. A right IJ line is now present, terminating at or near the level of the superior cavoatrial junction. No pneumothorax seen.IMPRESSIONStable chest. No complication identified following CVL insertion.Electronically signed by: DAVID MEMBRENO (Jun 13, 2020 10:58:42)
[2020-06-13] MEDS ORDERED: HALDOL INJ IVP SCH ×3 (12:00→15:00)
[2020-06-13] MEDS: PEPCID 20 MG IV PREMIX* 20 MG/50 ML BAG IV SCH (12:01)
[2020-06-13] MEDS ORDERED: NS 1/2 1000 ML IV 1,000 ML IV ONE (12:07)
[2020-06-13] MEDS: NS 1/2 1000 ML IV 1,000 ML IV SCH (12:22)
[2020-06-13] MEDS: SODIUM BICARBONATE 8.4% IV SCH (12:24)
[2020-06-13] MEDS: NS IV SCH (12:24)
[2020-06-13] MEDS: HumuLIN R SUBCUT PRN ×3 (12:26→20:48)
[2020-06-13] MEDS ORDERED: VERSED 100 MG in NS 100 ML IV 80 ML IV PRN (13:16)
[2020-06-13] MEDS ORDERED: QUELICIN (OR ANECTINE) ONE (15:00)
[2020-06-13] MEDS ORDERED: KETALAR ONE (15:00)
[2020-06-13] MEDS ORDERED: NORCURON INJ 10 MG VIAL ONE (15:00)
[2020-06-13] MEDS ORDERED: DIPRIVAN VIAL ONE (15:00)
[2020-06-13] MEDS: ZITHROMAX INJ 500 MG VIAL 500 MG in NS 250 ML IV 250 ML IV SCH (15:06)
[2020-06-13] MEDS: ZOSYN VIAL 4.5 GRAMS 4.5 G in NS 100 ML IV + SPIKE MINIBAG* 100 ML IV SCH ×2 (15:06→21:08)
[2020-06-13] MEDS ORDERED: NS 500 ML IV 500 ML IV ONE (15:17)
[2020-06-13] MEDS: DIPRIVAN PREMIX 1 GRAM IV 1,000 MG/100 ML VIAL IV PRN (15:37)
[2020-06-13] MEDS ORDERED: NS 100 ML IV 100 ML IV ONE (16:07)
--- NOTE | 2020-06-13 16:08 | DR.UPDATE ---
H&P Update History and Physical Update: History and Physical reviewed and patient examined. Changes noted: NO Yes with the following:will intubate and place arterial line for monitoring/frequent arterial sampling H&P Reviewed: Yes Patient was examined?: Yes Procedures (ALL) - Arterial Line Consent obtained: verbal consent Time out performed: Yes Size(gauge): 20 Technique used: guided wire technique Post-procedure: dry sterile dressing placed Patient tolerated procedure: Yes Site: Left, radial - Intubation Time out performed: Yes Sedative: ketamine (50mg, and propofol 50mg) paralytic: succinylchline (100mg. Vecuronium 10mg after return of spontaneous respirations) Laryngoscope: fiber optic video scope (glidescope 3) ET tube size: 7.5 Tube secured depth: 20 Tube secured location: other (gumline) Tube placement confirmation: visualized tube passing through cords, equal breath sounds bilaterally, no breath sounds over epigastrium, comfirmation by capnometer Patient tolerated procedure: Yes Intubation complications: none
--- NOTE | 2020-06-13 16:25 | RAD ---
HISTORYIntubation, pneumoniaSTUDYAP [id number] a.m. 06/13/2020FINDINGSEndotracheal tube is now present in mid trachea, the tip 5 cm above the joseph. Right IJ line again noted. NG tube passes below the diaphragm, tip not identified. Bilateral airspace disease is again noted with slight apparent improvement in pulmonary aeration.IMPRESSIONInterval intubation. Slight apparent improvement in pulmonary aeration with no new abnormality demonstrated.Electronically signed by: DAVID MEMBRENO (Jun 13, 2020 16:23:50)
[2020-06-13 17:57] LABS: ABG BASE EXCESS 0.3 mmol/L (-2.0-2.0); ABG HCO3 28.2 mmol/L (22-26)
[2020-06-13] MEDS: SNACK - Diabetic Appropriate PO SCH (20:39)
[2020-06-13] MEDS: LOVENOX INJ 40 MG SYR SC SCH (20:39)
[2020-06-13] MEDS: COLACE CAP 100 MG PO SCH (20:39)
[2020-06-14] MEDS ORDERED: ARTIFICIAL TEARS DROPS ONE (00:02)
[2020-06-14] MEDS: NS 1/2 1000 ML IV 1,000 ML IV SCH ×3 (00:41→13:45)
[2020-06-14] MEDS: LACRI-LUBE S.O.P. AFFEYE SCH ×3 (01:00→20:07)
[2020-06-14] MEDS: DIPRIVAN PREMIX 1 GRAM IV 1,000 MG/100 ML VIAL IV PRN ×4 (02:20→22:20)
[2020-06-14] MEDS: FIORICET TAB PO PRN ×2 (03:42→20:33)
[2020-06-14] MEDS: TESSALON PERLES PO SCH ×3 (05:31→21:01)
[2020-06-14 05:32] LABS: BASOPHILS % (AUTO) 0.1 % (0.2-1.0); HEMATOCRIT 38.1 % (36.0-47.0); HEMOGLOBIN 12.7 g/dL (12.0-16.0); LYMPHOCYTES # (AUTO) 0.5 X10^3/uL (1.3-2.9); LYMPHOCYTES % (AUTO) 3.1 % (21.0-51.0); MEAN CORPUSCULAR HEMOGLOBIN 27.5 pg (27.0-34.0); MEAN CORPUSCULAR HGB CONC 33.5 g/dL (33.0-35.0); MEAN CORPUSCULAR VOLUME 82.3 fL (80.0-100.0); MEAN PLATELET VOLUME 8.6 fL (7.4-11.0); MONOCYTES # (AUTO) 1.1 x10^3/uL (0.3-0.8); MONOCYTES % (AUTO) 7.4 % (0.0-13.0); NEUTROPHILS # (AUTO) 13.4 x10^3/uL (2.2-4.8); NEUTROPHILS % (AUTO) 89.4 % (42.0-75.0); PLATELET COUNT 112 X10^3/uL (150.0-450.0); RED BLOOD COUNT 4.63 X10^6/uL (3.5-5.4); RED CELL DISTRIBUTION WIDTH 15.4 % (11.6-16.5)
[2020-06-14] MEDS: SOLU-Medrol 40 MG VIAL IVP SCH ×3 (05:32→21:01)
[2020-06-14] MEDS: ZOSYN VIAL 4.5 GRAMS 4.5 G in NS 100 ML IV + SPIKE MINIBAG* 100 ML IV SCH ×3 (05:32→21:01)
[2020-06-14] MEDS ORDERED: NS 1/2 1000 ML IV 1,000 ML IV ONE ×2 (05:33→19:10)
[2020-06-14] MEDS: HumuLIN R SUBCUT PRN ×4 (05:35→20:32)
[2020-06-14 05:49] LABS: CALCIUM 8.1 mg/dL (8.5-10.1); CARBON DIOXIDE 27.4 mmol/L (21-32); COR CA(FOR HYPOALB) 8.9 mg/dL (8.5-10.1); CREATININE 1.41 mg/dL (0.55-1.02); TOTAL PROTEIN 6.3 g/dL (6.4-8.2)
[2020-06-14 05:50] LABS: ABG BASE EXCESS 0.5 mmol/L (-2.0-2.0); ABG HCO3 24.6 mmol/L (22-26)
--- NOTE | 2020-06-14 05:50 | RAD ---
HISTORYSOB, COVID-19STUDYCHEST, 1 [id number]/19/2020FINDINGSThe trachea is midline. The cardiac silhouette is stable. ETT, NGT, right IJ CVC stable in position. Perihilar and basilar interstitial and airspace opacities similar to prior exam.. The bony thorax is unremarkable.IMPRESSIONNo significant change.Electronically signed by: Gretchen Maynard (Jun 14, 2020 05:48:01)
[2020-06-14] MEDS: MAGNESIUM SULFATE 1 GRAM/100 mL PREMIX 1 GM/100 ML BAG IV PRN ×2 (06:41→17:00)
[2020-06-14] MEDS ORDERED: DIPRIVAN PREMIX 1 GRAM IV 1,000 MG/100 ML VIAL ONE (08:32)
[2020-06-14] MEDS: PULMICORT NEB TX 0.5 MG NEB SCH ×2 (09:38→20:15)
[2020-06-14] MEDS: DUONEB 0.5 MG/3 MG (3 mL) NEB SCH ×4 (09:38→20:15)
[2020-06-14] MEDS: CYMBALTA PO SCH (10:18)
[2020-06-14] MEDS: LEVAQUIN PREMIX IV 250 MG 250 MG/50 ML BAG IV SCH (10:19)
[2020-06-14] MEDS: LEVEMIR SC SCH (10:20)
[2020-06-14] MEDS: ZITHROMAX INJ 500 MG VIAL 500 MG in NS 250 ML IV 250 ML IV SCH (10:20)
[2020-06-14] MEDS: PEPCID 20 MG IV PREMIX* 20 MG/50 ML BAG IV SCH (10:20)
[2020-06-14] MEDS: PROTONIX INJ 40 MG VIAL IVP SCH ×2 (10:21→20:07)
[2020-06-14] MEDS: LOVENOX INJ 40 MG SYR SC SCH ×2 (10:21→20:07)
[2020-06-14] MEDS: NEURONTIN CAP 400 MG PO SCH ×2 (10:22→20:06)
[2020-06-14] MEDS: REMDESIVIR 100 MG in NS 250 ML IV 250 ML IV SCH (10:44)
[2020-06-14] MEDS: LASIX IVP SCH (11:45)
[2020-06-14] MEDS: MORPHINE SULFATE JET NEB NEB SCH ×4 (12:56→20:15)
[2020-06-14] MEDS: VERSED 100 MG in NS 100 ML IV 80 ML IV PRN (13:53)
[2020-06-14] MEDS ORDERED: LOPRESSOR INJ 5 MG AMP IVP ONE ×2 (18:41→22:20)
[2020-06-14] MEDS: COLACE CAP 100 MG PO SCH (20:02)
[2020-06-14] MEDS: SNACK - Diabetic Appropriate PO SCH (20:02)
[2020-06-14] MEDS: LANOXIN INJ IVP SCH (20:12)
[2020-06-14] MEDS: CARDIZEM INJ 125 MG VIAL 125 MG in NS 100 ML IV 100 ML IV PRN (23:05)
[2020-06-14] MEDS: LOPRESSOR TAB 25 MG PO SCH (23:36)
[2020-06-15] MEDS: LANOXIN INJ IVP SCH ×2 (02:49→06:41)
[2020-06-15] MEDS: NS 1/2 1000 ML IV 1,000 ML IV SCH ×4 (02:49→23:27)
[2020-06-15 04:30] LABS: ABG BASE EXCESS 5.9 mmol/L (-2.0-2.0); ABG HCO3 31.7 mmol/L (22-26)
[2020-06-15] MEDS: FIORICET TAB PO PRN (04:30)
[2020-06-15] MEDS: DIPRIVAN PREMIX 1 GRAM IV 1,000 MG/100 ML VIAL IV PRN ×3 (05:20→18:13)
[2020-06-15 05:44] LABS: ALBUMIN 2.5 g/dL (3.4-5.0); CALCIUM 8.2 mg/dL (8.5-10.1); CARBON DIOXIDE 28.3 mmol/L (21-32); COR CA(FOR HYPOALB) 9.4 mg/dL (8.5-10.1); CREATININE 1.77 mg/dL (0.55-1.02); TOTAL PROTEIN 5.7 g/dL (6.4-8.2)
[2020-06-15] MEDS: ZOSYN VIAL 4.5 GRAMS 4.5 G in NS 100 ML IV + SPIKE MINIBAG* 100 ML IV SCH ×3 (05:46→21:42)
[2020-06-15] MEDS: SOLU-Medrol 40 MG VIAL IVP SCH ×3 (05:46→21:42)
[2020-06-15] MEDS: TESSALON PERLES PO SCH ×3 (05:46→21:42)
[2020-06-15] MEDS: HumuLIN R SUBCUT PRN ×4 (05:50→21:45)
[2020-06-15 06:09] LABS: BASOPHILS % (AUTO) 0.1 % (0.2-1.0); HEMATOCRIT 38.1 % (36.0-47.0); HEMOGLOBIN 12.7 g/dL (12.0-16.0); LYMPHOCYTES # (AUTO) 0.6 X10^3/uL (1.3-2.9); LYMPHOCYTES % (AUTO) 4.4 % (21.0-51.0); MEAN CORPUSCULAR HEMOGLOBIN 27.9 pg (27.0-34.0); MEAN CORPUSCULAR HGB CONC 33.3 g/dL (33.0-35.0); MEAN CORPUSCULAR VOLUME 83.8 fL (80.0-100.0); MEAN PLATELET VOLUME 8.9 fL (7.4-11.0); MONOCYTES # (AUTO) 1.7 x10^3/uL (0.3-0.8); MONOCYTES % (AUTO) 11.7 % (0.0-13.0); NEUTROPHILS # (AUTO) 11.9 x10^3/uL (2.2-4.8); NEUTROPHILS % (AUTO) 83.8 % (42.0-75.0); PLATELET COUNT 108 X10^3/uL (150.0-450.0); RED BLOOD COUNT 4.55 X10^6/uL (3.5-5.4); RED CELL DISTRIBUTION WIDTH 15.5 % (11.6-16.5); WHITE BLOOD COUNT 14.2 X10^3/uL (3.6-10.0)
[2020-06-15] MEDS: PEPCID 20 MG IV PREMIX* 20 MG/50 ML BAG IV SCH (08:00)
--- NOTE | 2020-06-15 08:00 | RAD ---
HISTORYCOVID+STUDYCHEST, 1 [id number]/20/2020FINDINGSThe endotracheal tube and nasogastric tube are unchanged. There is persistent alveolar radiopacities in the left midlung zone and in the left lower lobe. There has been some mild interval improvement of patchy alveolar radiopacities in the right upper lobe as well as in the left lower lobe. No effusions or pneumothoraxIMPRESSIONInterval improvement of aeration in the right upper lobe and in the right lower lobe with persistent alveolar radiopacities in the left midlung zone and in the left lower lobeElectronically signed by: Cristal Dao (Jun 15, 2020 07:58:32)
[2020-06-15 08:46] LABS: CKMB % 0.7 % (<4); CREATINE KINASE 138 Units/L (26-192); CREATINE KINASE MB < 1.0 ng/mL (0-4.0)
[2020-06-15 08:49] LABS: TROPONIN I 9.41 ng/mL (0-1.5)
[2020-06-15] MEDS: LEVEMIR SC SCH (08:49)
[2020-06-15] MEDS: LOVENOX INJ 40 MG SYR SC SCH (08:50)
[2020-06-15] MEDS: REMDESIVIR 100 MG in NS 250 ML IV 250 ML IV SCH (09:30)
[2020-06-15] MEDS ORDERED: LANOXIN INJ IVP ONE ×2 (09:32→18:36)
[2020-06-15] MEDS: LACRI-LUBE S.O.P. AFFEYE SCH ×2 (09:41→21:41)
[2020-06-15] MEDS: LEVAQUIN PREMIX IV 250 MG 250 MG/50 ML BAG IV SCH (09:43)
[2020-06-15] MEDS: PULMICORT NEB TX 0.5 MG NEB SCH ×2 (09:47→22:31)
[2020-06-15] MEDS: XOPENEX 1.25 MG/3 ML NEBULE NEB SCH ×4 (09:47→22:32)
[2020-06-15] MEDS: LASIX IVP SCH (09:47)
[2020-06-15] MEDS: CYMBALTA PO SCH (10:27)
[2020-06-15] MEDS: PROTONIX INJ 40 MG VIAL IVP SCH ×2 (10:27→21:43)
[2020-06-15] MEDS: LOPRESSOR TAB 25 MG PO SCH ×2 (10:28→21:42)
[2020-06-15] MEDS: NEURONTIN CAP 400 MG PO SCH ×2 (10:28→21:25)
--- NOTE | 2020-06-15 10:40 | PCM.PROG ---
Progress Note - Progress Note for Day of Date of Exam: 06/12/20 - Subjective Subjective: WAS ADMITTED FOR TREATMENT OF PNEUMONIA DUE TO COVID-19, RESPIRATORY DISTRESS, CIRRHOSIS, AND HYPOXIA. TODAY, SHE IS ALERT, LYING IN BED ON MORNING ROUNDS. SHE CONTINUES WITH LABORED BREATHING THIS MORNING. SHE DENIES SIGNIFICANT IMPROVEMENT SINCE YESTERDAY. SHE IS CURRENTLY UTILIZING THE BIPAP. HER OXYGEN SATURATIONS ON THE BIPAP HAVE BEEN 94-97%. STAFF REPORTS THAT SHE DOES GET AGITATED AT TIMES AND ATTEMPTS TO GET OUT OF BED AND PULL OFF BIPAP. WHEN PATIENT IS NOT WEARING BIPAP, HER OXYGEN SATURATIONS DROP TO THE 70s. ON EXAMINATION, HEART IS REGULAR IN RATE AND RHYTHM. BILATERAL LUNGS ARE NOTED WITH SCATTERED WHEEZING THROUGHOUT. ABDOMEN IS ROUND, SOFT, AND NON-TENDER WITH NORMAL BOWEL SOUNDS NOTED IN ALL QUADRANTS. HER VITALS THIS MORNING ARE: 98.2-104-18-96%-144/85. LABS WERE OBTAINED. ABNORMAL LAB VALUES INCLUDE THE FOLLOWING: PLT COUNT 88, CHLORIDE 109, BUN 47, CREATININE 1.37, GLUCOSE 322, CALCIUM 7.6, FERRITIN 3425, TOTAL BILI 1.10, AST 130, ALK PHOS 173, CRP 52.80, TOTAL BILI 6.3, ALBUMIN 2.5. AN ABG WAS OBTAINED THIS MORNING AND REVEALED: PH 7.380, PC02 43, P02 80, HC03 25.4, 02 SAT 95, FI02 100.0. A CHEST XRAY WAS OBTAINED AND REVEALED: Cardiac and mediastinal contours are stable. Similar appearance of left worse than right basilar predominant airspace disease. No definite pleural effusion or pneumothorax. SHE IS CURRENTLY RECEIVING REMDESIVIR 100MG IV DAILY, LEVAQUIN 500MG IV DAILY, SOLU-MEDROL 40MG IV Q8H, DUONEBS QID, PULMICORT NEBS BID, LOVENOX 30MG SC DAILY, PEPCID 20MG IV Q12H, PROTONIX 40MG IV BID, HUMULIN R SLIDING SCALE, MORPHINE 1MG/HR SENIOR VICE PRESIDENT, MORPHINE TO HER NEB TREATMENTS, AND HER HOME MEDICATIONS WERE RESUMED. WE ORDERED ONE UNIT OF CONVALESCENT PLASMA, TO BE TRANSFUSED WHEN IT ITS AVAILABLE. WE WILL ALSO START ALBUMIN 25% IV DAILY AND ADD VERSED 1MG IV Q1H PRN. DUE TO AGITATION AND PULLING AT BIPAP. OTHERWISE, WE WILL CONTINUE WITH CURRENT PLAN OF CARE TODAY. WE WILL FOLLOW UP WITH AM LABS, CHEST XRAY, AND ABG AND CONTINUE TO MONITOR. - Past Medical Family Social History Past Med/Fam/Surg Hx: No changes since H&P Allergies: Allergies ondansetron [From Zofran] Allergy (Verified 06/08/20 21:27) codeine Adverse Reaction (Verified 10/07/17 15:10) Sulfa (Sulfonamide Antibiotics) Adverse Reaction (Verified 10/07/17 15:10) - Review of Systems ROS: No change since H&P - Vital Signs and I&O's Vital Signs: Temperature 99.9 F Pulse Rate [Apical] 150 Pulse Rate 150 Respiratory Rate 19 Blood Pressure [Left Radial 111/51 Artery] Blood Pressure [Right Arm] 105/66 Blood Pressure [Left Arm] 123/71 Blood Pressure 105/66 O2 Sat by Pulse Oximetry 94 Intake and Output: Intake & Output 06/12/20 06/13/20 06/14/20 06/15/20 11:59 11:59 11:59 11:59 Intake Total 4060 / 4060 3792 / 3792 2458.0 / 2458.0 3268 / 3268 Output Total 2550 / 2550 4350 / 4350 950 / 950 2775 / 2775 Balance 1510 / 1510 -558 / -558 1508.0 / 1508.0 493 / 493 - Physical Exam Oriented: Normal Eyes: Normal Ear: Normal Nose: Normal Throat: Normal Respiratory: Generalized, Diminished, Wheezes Cardiovascular: Normal : Normal Auscultation: Bowel Sounds: Normal Palpation: Normal Tenderness: Normal Skin: Normal Musculoskeletal: Normal Psychiatric: Normal Mood Description: Calm Affect: Normal Speech Pattern: Artificially Ventilated - Laboratory and Diagnostics Result Diagrams: 06/15/20 05:09 06/15/20 05:09 Labs: 06/13/20 18:10 Sputum - Expectorated Sputum Sputum Culture - Preliminary 06/13/20 18:10 Sputum - Expectorated Sputum - Final 06/09/20 09:40 Stool Stool Culture - Final 06/09/20 09:40 Stool - Final Laboratory WBC 14.2 X10^3/uL (3.6-10.0) H 06/15/20 05:09 RBC 4.55 X10^6/uL (3.5-5.4) 06/15/20 05:09 Hgb 12.7 g/dL (12.0-16.0) 06/15/20 05:09 Hct 38.1 % (36.0-47.0) 06/15/20 05:09 MCV 83.8 fL (80.0-100.0) 06/15/20 05:09 MCH 27.9 pg (27.0-34.0) 06/15/20 05:09 MCHC 33.3 g/dL (33.0-35.0) 06/15/20 05:09 RDW 15.5 % (11.6-16.5) 06/15/20 05:09 Plt Count 108 X10^3/uL (150.0-450.0) L 06/15/20 05:09 Plt Count Comment Decreased (ADEQUATE) A 06/12/20 04:25 MPV 8.9 fL (7.4-11.0) 06/15/20 05:09 Neut % (Auto) 83.8 % (42.0-75.0) H 06/15/20 05:09 Lymph % (Auto) 4.4 % (21.0-51.0) L 06/15/20 05:09 [place] % (Auto) 11.7 % (0.0-13.0) 06/15/20 05:09 Eos % (Auto) 0.0 % (0.9-2.9) L 06/15/20 05:09 Baso % (Auto) 0.1 % (0.2-1.0) L 06/15/20 05:09 Neut # (Auto) 11.9 x10^3/uL (2.2-4.8) H 06/15/20 05:09 Lymph # (Auto) 0.6 X10^3/uL (1.3-2.9) L 06/15/20 05:09 [place] # (Auto) 1.7 x10^3/uL (0.3-0.8) H 06/15/20 05:09 Eos # (Auto) 0.0 x10^3/uL (0.0-0.2) 06/15/20 05:09 Baso # (Auto) 0.0 X10^3/uL (0.0-0.1) 06/15/20 05:09 Absolute Nucleated RBC 0.1 /100WBC 06/15/20 05:09 Total Counted 50 06/09/20 07:32 Neutrophils % (Manual) 72 % (39-76) 06/09/20 07:32 Band Neutrophils % 10 % (0-10) 06/09/20 07:32 Lymphocytes % (Manual) 16 % (13-43) 06/09/20 07:32 Monocytes % (Manual) 2 % (4-9) L 06/09/20 07:32 Plt Morphology Comment Normal (NORMAL) 06/12/20 04:25 RBC Morphology Normal (NORMAL) 06/12/20 04:25 D-Dimer 0.64 ug/ml (0.0-0.57) H* 06/08/20 21:26 Sample Site [place] 06/15/20 04:25 ABG pH 7.410 (7.35-7.45) 06/15/20 04:25 ABG pCO2 50.0 mmHg (35.0-45.0) H 06/15/20 04:25 ABG pO2 83.0 mmHg (80.0-100.0) 06/15/20 04:25 ABG HCO3 31.7 mmol/L (22-26) H* 06/15/20 04:25 ABG O2 Saturation 96.0 % (90-100) 06/15/20 04:25 ABG Base Excess 5.9 mmol/L (-2.0-2.0) H 06/15/20 04:25 Tashi Test N/a 06/15/20 04:25 A-a Gradient 568.0 mmHg 06/15/20 04:25 FiO2 100.0 06/15/20 04:25 Blood Gas Comments Esteban well ae 06/15/20 04:25 Sodium 159 mmol/L (136-145) H* 06/15/20 05:09 Corrected Sodium 167 mmol/L (136-145) H 06/15/20 05:09 Potassium 3.2 mmol/L (3.5-5.1) L 06/15/20 05:09 Chloride 118 mmol/L (98-107) H* 06/15/20 05:09 Carbon Dioxide 28.3 mmol/L (21-32) 06/15/20 05:09 BUN 34 mg/dL (7-18) H 06/15/20 05:09 Creatinine 1.77 mg/dL (0.55-1.02) H 06/15/20 05:09 Est GFR (MDRD) Af Amer 37 (>60) L 06/15/20 05:09 Est GFR (MDRD) Non-Af 31 (>60) L 06/15/20 05:09 Glucose 423 mg/dL (65-99) H 06/15/20 05:09 POC Glucose (mg/dL) 378 mg/dL (65-99) H 06/15/20 05:11 Calcium 8.2 mg/dL (8.5-10.1) L 06/15/20 05:09 Corrected Calcium 9.4 mg/dL (8.5-10.1) 06/15/20 05:09 Magnesium 1.8 mg/dL (1.7-2.9) 06/14/20 05:06 Ferritin 2524 ng/mL (8-252) H 06/14/20 05:06 Total Bilirubin 2.00 mg/dL (0.2-1.0) H 06/15/20 05:09 AST 53 Units/L (15-37) H 06/15/20 05:09 ALT 27 Units/L (12-78) 06/15/20 05:09 Alkaline Phosphatase 136 Units/L (46-116) H 06/15/20 05:09 Ammonia 65 umol/L (11-32) H 06/14/20 05:00 Creatine Kinase 138 Units/L (26-192) 06/15/20 05:09 CK-MB (CK-2) < 1.0 ng/mL (0-4.0) 06/15/20 05:09 CK/CKMB % Calc 0.7 % (<4) 06/15/20 05:09 Troponin I 9.41 ng/mL (0-1.5) H* 06/15/20 05:09 C-Reactive Protein 145.30 mg/L (0-3.0) H 06/15/20 05:09 B-Natriuretic Peptide 22.3 pg/mL (0-79) 06/09/20 07:32 Total Protein 5.7 g/dL (6.4-8.2) L 06/15/20 05:09 Albumin 2.5 g/dL (3.4-5.0) L 06/15/20 05:09 Globulin 3.2 g/dL (2.5-4.5) 06/15/20 05:09 Albumin/Globulin Ratio 0.8 Ratio (1.1-2.1) L 06/15/20 05:09 Specimen Type Catherized urine 06/09/20 08:48 Urine Color Dark yellow (YELLOW) 06/09/20 08:48 Urine Appearance Clear (CLEAR) 06/09/20 08:48 Urine pH 5.0 (5.0 - 8.0) 06/09/20 08:48 Ur Specific [place] 1.015 (1.000-1.030) 06/09/20 08:48 Urine Protein 2+ (NEGATIVE) 06/09/20 08:48 Urine Glucose (UA) 1+ (NEGATIVE) 06/09/20 08:48 Urine Ketones 1+ (NEGATIVE) 06/09/20 08:48 Urine Occult Blood 5+ (NEGATIVE) 06/09/20 08:48 Urine Nitrite Negative (NEGATIVE) 06/09/20 08:48 Urine Bilirubin Negative (NEGATIVE) 06/09/20 08:48 Urine Urobilinogen 1+ (NORMAL) 06/09/20 08:48 Ur Leukocyte Esterase Negative (NEGATIVE) 06/09/20 08:48 Urine RBC 20-30 /HPF (0-3) A 06/09/20 08:48 Urine WBC 0-2 /HPF (0-5) 06/09/20 08:48 Ur Squamous Epith Cells Few /HPF (NEGATIVE) 06/09/20 08:48 Amorphous Sediment Trace /HPF (NEGATIVE) 06/09/20 08:48 Urine Bacteria Trace /HPF (NEGATIVE) 06/09/20 08:48 Ur Culture Indicated? No/not indicated 06/09/20 08:48 Stool Description 100g brown liquid 06/09/20 09:40 Stl Occult Blood (IFOB) Positive (NEGATIVE) A 06/09/20 09:40 Stool for White Cells Positive (NEGATIVE) A 06/09/20 09:40 Stl C. diff Tox B Gene Negative (NEGATIVE) 06/09/20 09:40 Stl C. diff [id number] Negative (NEGATIVE) 06/09/20 09:40 Influenza Type A (PCR) Negative (NEGATIVE) 06/09/20 10:30 Influenza Type B (PCR) Negative (NEGATIVE) 06/09/20 10:30 Blood Type AB POSITIVE 06/09/20 10:23 - Plan (1) Pneumonia due to 2019 novel coronavirus Status: Acute Plan: REMDESIVIR 100MG IV DAILY, LEVAQUIN 500MG IV DAILY, SOLU-MEDROL 40MG IV Q8H, DUONEBS QID, PULMICORT NEBS BID, LOVENOX 30MG SC DAILY, PEPCID 20MG IV Q12H , PROTONIX 40MG IV BID, HUMULIN R SLIDING SCALE, AND MORPHINE 1MG/HR SENIOR VICE PRESIDENT, VERSED 1MG IV Q1H PRN, MORPHINE IN NEBS [place], ALBUMIN 25% IV DAILY, HER HOME MEDICATIONS WERE RESUMED. ONE UNIT OF CONVALESCENT PLASMA, TO BE TRANSFUSED WHEN IT ITS AVAILABLE. BIPAP (2) Respiratory distress Status: Acute (3) Hypoxia Status: Acute (4) Cirrhosis Status: Acute Qualifiers: Hepatic cirrhosis type: unspecified hepatic cirrhosis Ascites presence: without ascites Qualified Code(s): K74.60 - Unspecified cirrhosis of liver (5) Diabetes mellitus Status: Chronic Qualifiers: Diabetes mellitus type: type 2 Diabetes mellitus senior care insulin use: with senior care use Diabetes mellitus complication status: with other specified complication Qualified Code(s): E11.69 - Type 2 diabetes mellitus with other specified complication; Z79.4 - dedicated intermodal truck driver (current) use of insulin
[2020-06-15] MEDS: MORPHINE SULFATE JET NEB NEB SCH ×4 (10:56→22:31)
[2020-06-15] MEDS ORDERED: NEXTERONE IV 150 MG PREMIX* 150 MG/100 ML BAG IV ONE (11:00)
[2020-06-15] MEDS ORDERED: LOVENOX INJ 40 MG SYR SC NR (11:00)
[2020-06-15] MEDS ORDERED: NEXTERONE IV 360 MG PREMIX* 360 MG/200 ML BAG IV NR (11:10)
[2020-06-15] MEDS ORDERED: NS 100 ML IV 100 ML IV ONE (12:16)
[2020-06-15] MEDS: ZITHROMAX INJ 500 MG VIAL 500 MG in NS 250 ML IV 250 ML IV SCH (12:20)
[2020-06-15] MEDS: CARDIZEM INJ 125 MG VIAL 125 MG in NS 100 ML IV 100 ML IV PRN (12:47)
[2020-06-15 12:56] LABS: CKMB % 0.8 % (<4); CREATINE KINASE 126 Units/L (26-192); CREATINE KINASE MB < 1.0 ng/mL (0-4.0)
[2020-06-15 14:18] LABS: TROPONIN I 8.22 ng/mL (0-1.5)
[2020-06-15] MEDS ORDERED: NS 1000 ML 1,000 ML IV ONE ×2 (15:35→15:36)
[2020-06-15] MEDS: DECADRON JET NEB (RESP USE) NEB SCH ×2 (16:09→22:31)
[2020-06-15] MEDS: MUCOMYST 20% 200 MG/ML NEB SCH ×2 (16:10→22:31)
[2020-06-15 17:16] LABS: CKMB % 0.8 % (<4); CREATINE KINASE 126 Units/L (26-192); CREATINE KINASE MB < 1.0 ng/mL (0-4.0)
[2020-06-15 17:19] LABS: TROPONIN I 7.81 ng/mL (0-1.5)
[2020-06-15] MEDS: NEXTERONE IV 360 MG PREMIX* 360 MG/200 ML BAG IV PRN (17:24)
[2020-06-15] MEDS: VERSED 100 MG in NS 100 ML IV 80 ML IV PRN (18:14)
[2020-06-15] MEDS ORDERED: TYLENOL SUPP 650 MG PR PRN (19:56)
[2020-06-15] MEDS: COLACE CAP 100 MG PO SCH (21:41)
[2020-06-15] MEDS: SNACK - Diabetic Appropriate PO SCH (21:41)
[2020-06-15] MEDS: LOVENOX INJ 80 MG SYR SC SCH (21:43)
[2020-06-15] MEDS: TYLENOL 325 MG TAB PO PRN (21:44)
[2020-06-15] MEDS ORDERED: OFIRMEV IV 1000 MG VIAL 1,000 MG/100 ML VIAL IV PRN (22:51)
[2020-06-15] MEDS ORDERED: NS 1/2 1000 ML IV 1,000 ML IV ONE (22:56)
[2020-06-16] MEDS: DIPRIVAN PREMIX 1 GRAM IV 1,000 MG/100 ML VIAL IV PRN ×3 (00:41→12:28)
[2020-06-16] MEDS ORDERED: LOPRESSOR INJ 5 MG AMP IVP ONE (00:57)
[2020-06-16] MEDS: CARDIZEM INJ 125 MG VIAL 125 MG in NS 100 ML IV 100 ML IV PRN (01:31)
[2020-06-16] MEDS: NEXTERONE IV 360 MG PREMIX* 360 MG/200 ML BAG IV PRN (04:23)
[2020-06-16] MEDS ORDERED: NS 1/2 1000 ML IV 1,000 ML IV ONE ×2 (04:44→11:32)
[2020-06-16] MEDS: NS 1/2 1000 ML IV 1,000 ML IV SCH ×2 (04:52→06:04)
[2020-06-16] MEDS: TESSALON PERLES PO SCH (05:09)
[2020-06-16] MEDS: SOLU-Medrol 40 MG VIAL IVP SCH (05:09)
[2020-06-16 05:22] LABS: ABG BASE EXCESS -0.1 mmol/L (-2.0-2.0); ABG HCO3 25.9 mmol/L (22-26)
[2020-06-16] MEDS: ZOSYN VIAL 4.5 GRAMS 4.5 G in NS 100 ML IV + SPIKE MINIBAG* 100 ML IV SCH (05:41)
[2020-06-16] MEDS: HumuLIN R SUBCUT PRN (05:42)
[2020-06-16 06:10] LABS: BASOPHILS % (AUTO) 0 % (0.2-1.0); HEMATOCRIT 36.5 % (36.0-47.0); HEMOGLOBIN 11.8 g/dL (12.0-16.0); LYMPHOCYTES # (AUTO) 1.1 X10^3/uL (1.3-2.9); LYMPHOCYTES % (AUTO) 6.5 % (21.0-51.0); MEAN CORPUSCULAR HEMOGLOBIN 27.6 pg (27.0-34.0); MEAN CORPUSCULAR HGB CONC 32.2 g/dL (33.0-35.0); MEAN CORPUSCULAR VOLUME 85.7 fL (80.0-100.0); MEAN PLATELET VOLUME 9.7 fL (7.4-11.0); MONOCYTES # (AUTO) 0.9 x10^3/uL (0.3-0.8); MONOCYTES % (AUTO) 5.5 % (0.0-13.0); PLATELET COUNT 78 X10^3/uL (150.0-450.0); RED BLOOD COUNT 4.26 X10^6/uL (3.5-5.4); RED CELL DISTRIBUTION WIDTH 15.8 % (11.6-16.5); WHITE BLOOD COUNT 17.1 X10^3/uL (3.6-10.0)
[2020-06-16 06:24] LABS: ALBUMIN 2.1 g/dL (3.4-5.0); CALCIUM 7.4 mg/dL (8.5-10.1); CARBON DIOXIDE 24.1 mmol/L (21-32); COR CA(FOR HYPOALB) 8.9 mg/dL (8.5-10.1); CREATININE 2.03 mg/dL (0.55-1.02); TOTAL PROTEIN 5.3 g/dL (6.4-8.2)
--- NOTE | 2020-06-16 07:09 | RAD ---
HISTORYFollow-up COVID-19STUDYChest AP [id number]/21/2020FINDINGSThere is an endotracheal tube in good position. There is a nasoga stric tube coursing below the left hemidiaphragm its tip is not visible. There is a right IJ line in good position. The heart remains mildly enlarged. Bilateral ground-glass infiltrates involve predomin antly the right lower lobe and the entire left lung and are unchanged when compared with the prior ex amination. No pleural effusions are identified. Bony thorax is unremarkable.IMPRESSIONNo change right lower lobe and diffuse left lung ground-glass and alveolar infiltrates.No change cardiomegaly withou t congestive heart failureElectronically signed by: EVER CHRISTENSEN (Jun 16, 2020 07:08:15)
[2020-06-16] MEDS ORDERED: NS 100 ML IV 100 ML IV ONE ×2 (07:58→11:35)
[2020-06-16] MEDS: PROTONIX INJ 40 MG VIAL IVP SCH (08:44)
[2020-06-16] MEDS: CYMBALTA PO SCH (08:47)
[2020-06-16] MEDS: LEVEMIR SC SCH (08:47)
[2020-06-16] MEDS: LACRI-LUBE S.O.P. AFFEYE SCH (08:47)
[2020-06-16] MEDS: NEURONTIN CAP 400 MG PO SCH (08:48)
[2020-06-16] MEDS: LOPRESSOR TAB 25 MG PO SCH ×2 (08:49→09:23)
[2020-06-16] MEDS: TYLENOL 325 MG TAB PO PRN (08:50)
[2020-06-16] MEDS: LOVENOX INJ 80 MG SYR SC SCH (08:52)
[2020-06-16] MEDS ORDERED: MUCOMYST (RESPIRATORY USE ONLY) ONE (09:03)
[2020-06-16 09:33] VITALS: BP 90/58
[2020-06-16] MEDS: PEPCID 20 MG IV PREMIX* 20 MG/50 ML BAG IV SCH (09:33)
[2020-06-16] MEDS: MUCOMYST 20% 200 MG/ML NEB SCH (09:55)
[2020-06-16] MEDS: DECADRON JET NEB (RESP USE) NEB SCH (09:55)
[2020-06-16] MEDS: PULMICORT NEB TX 0.5 MG NEB SCH (09:55)
[2020-06-16] MEDS: XOPENEX 1.25 MG/3 ML NEBULE NEB SCH (09:55)
[2020-06-16] MEDS: ZITHROMAX INJ 500 MG VIAL 500 MG in NS 250 ML IV 250 ML IV SCH (10:30)
[2020-06-16] MEDS: LEVAQUIN PREMIX IV 250 MG 250 MG/50 ML BAG IV SCH (11:00)
[2020-06-16] MEDS: MORPHINE SULFATE JET NEB NEB SCH (11:18)
[2020-06-16] MEDS: REMDESIVIR 100 MG in NS 250 ML IV 250 ML IV SCH (12:00)
== END 2020-06-16 12:15 | disposition short-term general hospital (02) | DRG 208 ==
LOC: ER 21:13 → MED/SURG 22:58 → ICU 06-09 11:04
PROVIDERS: ADMIT Obstetrics & Gynecology Obstetrics; ATTEND Internal Medicine
DX: J15.212 Pneumonia due to Methicillin resistant Staphylococcus aureus; U07.1 COVID-19; I10 Essential (primary) hypertension; R79.89 Other specified abnormal findings of blood chemistry; J12.89 Other viral pneumonia; E11.65 Type 2 diabetes mellitus with hyperglycemia; Z79.4 Long term (current) use of insulin; R06.02 Shortness of breath; R06.03 Acute respiratory distress; K74.60 Unspecified cirrhosis of liver; E87.0 Hyperosmolality and hypernatremia